=== PATIENT | male | born 1955 | race Caucasian/White ===

== ENCOUNTER 2017-12-13 07:58 | Observation (INO) | payer OTHER ==
[~2017-12-13] VITALS: Ht 182.9 cm; Wt 81.6 kg
[2017-12-13] MEDS ORDERED: ONDANSETRON HCL INJ 2 MG/ML VIAL IV STA (08:36)
[2017-12-13 08:41] LABS: BASOPHILS % 0.5 % (0.0-1.0); EOSINOPHILS # (AUTO) 0.2 (0.0-0.4); EOSINOPHILS % 2.1 % (0.0-6.0); HEMATOCRIT 46.4 % (38.2-49.6); HEMOGLOBIN 15.6 g/dL (14.0-18.0); LYMPHOCYTES # (AUTO) 1.9 (1.0-3.2); LYMPHOCYTES % 23.6 % (18.0-39.1); MEAN CORPUSCULAR HEMOGLOBIN 29.1 pg (28-32); MEAN CORPUSCULAR HGB CONC 33.6 g/dL (31-35); MEAN CORPUSCULAR VOLUME 86.4 fL (81-99); MONOCYTES # (AUTO) 0.7 (0.2-0.8); MONOCYTES % 8.9 % (4.4-11.3); NEUTROPHILS # (AUTO) 5.2 (2.1-6.9); NEUTROPHILS % 64.7 % (38.7-80.0); PLATELET COUNT 152 x10e3/uL (140-360); RED BLOOD COUNT 5.37 x10e6/uL (4.3-5.7)
[2017-12-13] MEDS ORDERED: SODIUM CHLORIDE 0.9% 250ML 250 ML IV ONE (08:45)
[2017-12-13] MEDS ORDERED: ACETAMIN/BUTALBITAL/CAFFEINE TAB PO ONE (08:45)
[2017-12-13] MEDS ORDERED: MECLIZINE HCL 12.5 MG TAB PO ONE ×2 (08:45→12:00)
[2017-12-13 08:51] LABS: INR 1.09; PROTHROMBIN TIME 13.3 seconds (11.9-14.5)
[2017-12-13 08:52] LABS: PARTIAL THROMBOPLASTIN TIME 25.2 seconds (23.8-35.5)
[2017-12-13] MEDS ORDERED: MECLIZINE HCL 12.5 MG TAB PO SCH (09:00)
[2017-12-13] MEDS ORDERED: ONDANSETRON HCL INJ 2 MG/ML VIAL IV PRN (09:00)
[2017-12-13] MEDS ORDERED: DEXTROSE 50% SYRINGE 50 ML IV PRN (09:00)
[2017-12-13] MEDS ORDERED: FAMOTIDINE 20 MG/2 ML VIAL IV SCH ×2 (09:00)
[2017-12-13] MEDS ORDERED: ASPIRIN 81 MG ENTERIC COATED PO SCH ×2 (09:00)
[2017-12-13] MEDS ORDERED: LEVALBUTEROL HCL SOLN NEBU 1.25 MG/3 ML NEB INH PRN (09:00)
[2017-12-13] MEDS ORDERED: ASPIRIN 81 MG CHEW TAB PO ONE (09:00)
[2017-12-13 09:01] LABS: ALANINE AMINOTRANSFERASE 15 IU/L (0-55); ALBUMIN 4.1 g/dL (3.5-5.0); ALBUMIN/GLOBULIN RATIO 1.1 (0.8-2.0); ALKALINE PHOSPHATASE 68 IU/L (40-150); ANION GAP 12.3 mmol/L (8-16); BLOOD UREA NITROGEN 23 mg/dL (7-26); BUN/CREATININE RATIO 22 (6-25); CARBON DIOXIDE 26 mmol/L (22-29); CHLORIDE 105 mmol/L (98-107); CREATINE KINASE 66 IU/L (30-200); CREATININE, SERUM 1.03 mg/dL (0.72-1.25); EST GLOMERULAR FILTRATION RATE > 60 ML/MIN (60-); GLUCOSE 246 mg/dL (74-118); POTASSIUM 4.3 mmol/L (3.5-5.1); SODIUM 139 mmol/L (136-145)
[2017-12-13 09:12] LABS: MAGNESIUM 1.8 MG/DL (1.3-2.1)
[2017-12-13] MEDS ORDERED: HYDRALAZINE HCL25 MG PO (09:13)
[2017-12-13] MEDS ORDERED: SERTRALINE HCL50 MG PO (09:13)
[2017-12-13] MEDS ORDERED: LOTRISONE CREAM15 GM TP (09:13)
[2017-12-13] MEDS ORDERED: METHOCARBAMOL750 MG PO (09:13)
[2017-12-13] MEDS ORDERED: FLUTICASONE PRO15 GM (09:13)
[2017-12-13] MEDS ORDERED: KLOR-CON 1010 MEQ PO (09:13)
[2017-12-13] MEDS ORDERED: LISINOPRIL2.5 MG PO (09:13)
[2017-12-13] MEDS ORDERED: HUMULIN-R100 UNITS/ (09:13)
[2017-12-13] MEDS ORDERED: PEPCID20 MG PO (09:13)
[2017-12-13] MEDS ORDERED: GABAPENTIN100 MG PO (09:13)
[2017-12-13] MEDS ORDERED: LOVASTATIN40 MG PO (09:13)
[2017-12-13] MEDS ORDERED: PROAIR HFA INH8.5 GM PO (09:13)
[2017-12-13] MEDS ORDERED: ASPIR 8181 MG PO (09:13)
[2017-12-13] MEDS ORDERED: TYLENOL WITH C1 EACH PO (09:13)
[2017-12-13] MEDS ORDERED: SYMBICORT 16010.2 GM PO (09:13)
[2017-12-13] MEDS ORDERED: NOVOLIN N100 UNIT/1 SQ (09:13)
[2017-12-13] MEDS ORDERED: COREG3.125 MG PO (09:13)
[2017-12-13] MEDS ORDERED: LASIX40 MG PO (09:13)
--- NOTE | 2017-12-13 09:20 | Diagnostic Imaging Report ---
PROCEDURE:CHEST SINGLE (PORTABLE) TECHNIQUE:Portable AP chest INDICATION:Dizziness for 5 days COMPARISON:None. FINDINGS: Lungs are clear and inflated. No pleural effusions. Normal heart size, mediastinal contour, and pulmonary vasculature. Pacemaker/AICD over left hemithorax; leads intact. Intact skeleton. CONCLUSION: No acute abnormality. Dictated by: Margarito Patterson M.D. on 12/13/2017 at 9:19 Electronically approved by: Margarito Patterson M.D. on 12/13/2017 at 9:19
[2017-12-13] MEDS ORDERED: CLOPIDOGREL BISULFATE 75 MG TAB PO ONE (09:30)
[2017-12-13 09:31] LABS: THYROID STIMULATING HORMONE 2.203 uIU/mL (0.350-4.940)
--- NOTE | 2017-12-13 09:31 | Diagnostic Imaging Report ---
Exam: Head CT without contrast History: Dizziness Comparison studies: None Technique: Axial images were obtained from the skull base to the vertex. Coronal and sagittal images reconstructed from the axial data. Intravenous contrast: None Findings: Scalp: No abnormalities. Bones: No fractures, blastic or lytic lesions. Brain sulci: Appropriate for age. Ventricles: Mild compensatory dilatation.. No hydrocephalus. Extra-axial spaces: No masses, no fluid collection. Parenchyma: Age-indeterminate nonhemorrhagic insults in the left cerebellum predominantly within the left PICA vascular territory appears superimposed on a more chronic insult in the left inferior cerebellum. No acute hemorrhage. A few hypodensities in the supratentorial white matter are nonspecific but most compatible with chronic small vessel ischemic changes. Sellar/suprasellar region: No abnormalities. Craniocervical junction: Patent foramen magnum. No Chiari one malformation. Incidental findings: Atherosclerotic calcifications in the carotid siphons.. IMPRESSION: 1. Age-indeterminate nonhemorrhagic insults in the left cerebellum without mass effect superimposed on chronic insult(s) predominantly in the left PICA territory. 2. Mild generalized volume loss. 3. Mild chronic microvascular ischemic changes. Findings were discussed with Dr. Truong at 9:25 AM on 12/13/2017. Cervical and intracranial CTA could further evaluate the vasculature as MRI may be contraindicated in this patient with pacemaker. Signed by: Dr. Walter Lopez M.D. on 12/13/2017 9:27 AM
--- OUTSIDE RECORDS SUMMARY | 2017-12-13 09:38 | XMS REPORT ---
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 Allergies, Adverse Reactions, Alerts This patient has no known allergies or adverse reactions. Medications This patient has no known medications. Results Test Description Test Time Test Comments Text Results Atomic Results Result Comments CHEST SINGLE (PORTABLE) [id number] [place], [place] [address] Patient Name: BHARGAV HODGE MR #: [id number] : 1955 Age/Sex: 62/M Req #: [id number] Adm Physician: Ordered by: KELLY CROFT MD, MD Report #: [id number] Location: ER Room/Bed: Procedure: [id number] DX/CHEST SINGLE (PORTABLE) Exam Date: 12/13/17 Exam Time: 0910 REPORT STATUS: Signed PROCEDURE: CHEST SINGLE (PORTABLE) TECHNIQUE: Portable AP chest INDICATION: Dizziness for 5 days COMPARISON: None. FINDINGS: Lungs are clear and inflated. No pleural effusions. Normal heart size, mediastinal contour, and pulmonary vasculature. Pacemaker/AICD over left hemithorax; leads intact. Intact skeleton. CONCLUSION: No acute abnormality. Dictated by: Chaitanya Patterson M.D. on 12/13/2017 at 9:19 Electronically approved by: Chaitanya Patterson M.D. on 12/13/2017 at 9:19 Dictated By: CHAITANYA PATTERSON MD 8 Transcribed By: POOL on 12/13/17918 COPY TO: KELLY CROFT CT BRAIN WO [place] [address] Patient Name: BHARGAV HODGE MR #: [id number] : 1955 Age/Sex: 62/M Req #: [id number] Adm Physician: Ordered by: KELLY CROFT MD, MD Report #: [id number] Location: ER Room/Bed: Procedure: [id number] CT/CT BRAIN WO Exam Date: Exam Time: REPORT STATUS: Signed Exam: Head CT without contrast History: Dizziness Comparison studies: None Technique: Axial images were obtained from the skull base to the vertex. Coronal and sagittal images reconstructed from the axial data. Intravenous contrast: None Findings: Scalp: No abnormalities. Bones: No fractures, blastic or lytic lesions. Brain sulci : Appropriate for age. Ventricles: Mild compensatory dilatation.. No hydrocephalus. Extra-axial spaces: No masses, no fluid collection. Parenchyma: Age-indeterminate nonhemorrhagic insults in the left cerebellum predominantly within the left PICA vascular territory appears superimposed on a more chronic insult in the left inferior cerebellum. No acute hemorrhage. A few hypodensities in the supratentorial white matter are nonspecific but most compatible with chronic small vessel ischemic changes. Sellar/ suprasellar region: No abnormalities. Craniocervical junction: Patent foramen magnum. No Chiari one malformation. Incidental findings: Atherosclerotic calcifications in the carotid siphons.. IMPRESSION: 1. Age-indeterminate nonhemorrhagic insults in the left cerebellum without mass effect superimposed on chronic insult(s) predominantly in the left PICA territory. 2. Mild generalized volume loss. 3. Mild chronic microvascular ischemic changes. Findings were discussed with Dr. Croft at 9:25 AM on 12/13/2017. Cervical and intracranial CTA could further evaluate the vasculature as MRI may be contraindicated in this patient with pacemaker. Signed by: Dr. Boo Lopez M.D. on 12/13/2017 9:27 AM Dictated By: BOO LOPEZ MD 6 Transcribed By: CODEY on 12/13/17926 COPY TO: KELLY CROFT
[2017-12-13 10:30] VITALS: BP 149/79
[2017-12-13] MEDS: NICOTINE 21 MG/EA PATCH TOP SCH (10:55)
--- NOTE | 2017-12-13 12:09 | Diagnostic Imaging Report ---
Exam: Neck and brain CTA History:Possible acute CVA Comparison studies:Head CT of 12/13/2017 performed on the same date. Technique: Axial images were obtained from the thoracic inlet. Coronal and sagittal images reconstructed from the axial data. Additional multiplanar 3-D MIP reformatted images were reviewed on a separate workstation the radiologist. Intravenous contrast: 100 cc of Omnipaque 300. If present, stenosis is calculated utilizing the NASCET method which calculates the degree of stenosis with reference to the normal lumen of the carotid artery distal to the stenosis. Findings: Cervical CTA: Aortic arch and major vessels: Minimal hard plaque within the descending aorta. Patent, no stenosis in the right brachiocephalic trunk and right subclavian artery. Patent, no stenosis in the proximal right subclavian artery Streak artifact from overlying venous contamination in the left subclavian vein Limited evaluation the distal left subclavian artery. Common carotid arteries: Patent. No abnormalities. Carotid bulbs: Heart and soft plaque bilaterally result in approximately 10% stenosis on the right. No (0%) hemodynamic significant stenosis on the left. Internal carotid arteries: Patent, no stenosis beyond the bulb. Left vertebral arteries: Patent, no abnormalities. The left vertebral artery is dominant. Intracranial CTA: Internal carotid arteries: Patent bilaterally with calcified atherosclerosis in the bilateral cavernous cavernous segments with only minimal stenosis in the bilateral cavernous segments. Middle cerebral arteries: Patent bilateral M1 and proximal M2 segments. Anterior cerebral arteries: Patent bilateral A1 and A2 segments. Vertebral arteries: Patent bilaterally. The V4 segment of the nondominant right vertebral artery is hypoplastic beyond the origin of the right PICA. The origin of the left posterior inferior cerebellar artery (PICA) is patent, moreover the left PICA is not well-visualized beyond its proximal segment. The left PICA territory is partially supplied by a dominant, patent right PICA. Basilar artery: Patent, no abnormalities. Posterior cerebral arteries: Patent, no abnormalities. Vertebral arteries: Anatomical variants: Acom: Patent. . Pcoms: Hypoplastic bilaterally. Vertebral arteries: Right is dominant. Incidental findings: Partially imaged left AICD and/or pacemaker. At least mild canal stenosis at C5-C6 due to a disc bulge. IMPRESSION: Cervical CTA: 1. Mild atherosclerosis at the carotid bulbs with approximately 10% stenosis at the right carotid bulb and no (0%) stenosis at the left carotid bulb. 2. Patent, no abnormalities in the vertebral arteries. Intracranial CTA: 1. Mild calcified atherosclerosis in the carotid siphons. 2. Left PICA not well visualized beyond beyond its origin which which is otherwise patent. Left PICA territory is partially supplied by a patent dominant right PICA. 3. No additional intracranial CTA abnormalities. Please refer to head CT report of the same date for further description of intracranial findings. Signed by: Dr. Walter Lopez M.D. on 12/13/2017 12:05 PM
[2017-12-13 12:16] VITALS: BP 149/79
[2017-12-13] MEDS: INSULIN REGULAR, HUMAN 100 UNIT/1 ML 3ML VIAL SQ SCH ×3 (12:30→21:41)
[2017-12-13] MEDS ORDERED: IPRATROPIUM BROMIDE 0.02% 2.5 ML NEB NEB SCH (13:00)
[2017-12-13] MEDS ORDERED: IOPAMIDOL 370 MG/ML 200 ML INFUS..BTL INJ ONE (13:50)
[2017-12-13] MEDS ORDERED: SODIUM CHLORIDE 0.9% 50ML 50 ML ONE (13:50)
[2017-12-13] MEDS: MECLIZINE HCL 12.5 MG TAB PO SCH ×2 (14:55→20:41)
[2017-12-13 15:56] VITALS: BP 127/69
[2017-12-13] MEDS: ACETAMIN/BUTALBITAL/CAFFEINE TAB PO PRN (16:39)
[2017-12-13 17:28] LABS: CREATINE KINASE 63 IU/L (30-200)
[2017-12-13] MEDS: CARVEDILOL 3.125 MG TAB PO SCH (18:01)
[2017-12-13] MEDS: GABAPENTIN 100 MG CAP PO SCH (20:41)
[2017-12-13] MEDS: HYDRALAZINE HCL 25 MG TAB PO SCH (20:41)
[2017-12-13 20:52] VITALS: BP 128/76
[2017-12-13] MEDS ORDERED: SIMVASTATIN 20 MG TAB PO SCH (21:00)
[2017-12-14] MEDS: ACETAMIN/BUTALBITAL/CAFFEINE TAB PO PRN (00:05)
[2017-12-14] MEDS: MECLIZINE HCL 12.5 MG TAB PO SCH ×4 (03:31→20:30)
[2017-12-14 04:32] VITALS: BP 131/73
[2017-12-14 06:42] LABS: BASOPHILS % 0.5 % (0.0-1.0); EOSINOPHILS # (AUTO) 0.1 (0.0-0.4); EOSINOPHILS % 1.7 % (0.0-6.0); HEMATOCRIT 44.3 % (38.2-49.6); HEMOGLOBIN 14.7 g/dL (14.0-18.0); LYMPHOCYTES # (AUTO) 2.3 (1.0-3.2); LYMPHOCYTES % 27.9 % (18.0-39.1); MEAN CORPUSCULAR HEMOGLOBIN 28.9 pg (28-32); MEAN CORPUSCULAR HGB CONC 33.2 g/dL (31-35); MEAN CORPUSCULAR VOLUME 87.2 fL (81-99); MONOCYTES # (AUTO) 0.6 (0.2-0.8); MONOCYTES % 6.8 % (4.4-11.3); NEUTROPHILS # (AUTO) 5.3 (2.1-6.9); NEUTROPHILS % 62.9 % (38.7-80.0); PLATELET COUNT 152 x10e3/uL (140-360); RED BLOOD COUNT 5.08 x10e6/uL (4.3-5.7); RED CELL DISTRIBUTION WIDTH 12.8 % (11.7-14.4)
[2017-12-14] MEDS: BUDESONIDE/FORMOTEROL 160/4.5MCG INHALER INH SCH ×2 (07:00→10:33)
[2017-12-14 07:01] LABS: ALANINE AMINOTRANSFERASE 14 IU/L (0-55); ALBUMIN 3.6 g/dL (3.5-5.0); ALBUMIN/GLOBULIN RATIO 1.1 (0.8-2.0); ALKALINE PHOSPHATASE 63 IU/L (40-150); ANION GAP 9.9 mmol/L (8-16); BLOOD UREA NITROGEN 18 mg/dL (7-26); BUN/CREATININE RATIO 17 (6-25); CALCIUM 9.2 mg/dL (8.4-10.2); CARBON DIOXIDE 28 mmol/L (22-29); CHLORIDE 103 mmol/L (98-107); CHOL/HDL RATIO 4.7 (3.9-4.7); CHOLESTEROL 177 MD/DL (0-199); CREATININE, SERUM 1.03 mg/dL (0.72-1.25); EST GLOMERULAR FILTRATION RATE > 60 ML/MIN (60-); GLUCOSE 260 mg/dL (74-118); HDL CHOLESTEROL 38 MG/DL (40-60); LDL CHOLESTEROL 104 MG/DL (60-130); MAGNESIUM 1.7 MG/DL (1.3-2.1); POTASSIUM 3.9 mmol/L (3.5-5.1); SODIUM 137 mmol/L (136-145); TRIGLYCERIDES 177 MG/DL (0-149)
[2017-12-14] MEDS: INSULIN REGULAR, HUMAN 100 UNIT/1 ML 3ML VIAL SQ SCH ×4 (07:30→20:30)
[2017-12-14 07:33] LABS: CREATINE KINASE 56 IU/L (30-200)
[2017-12-14 08:30] VITALS: BP 125/56
[2017-12-14] MEDS: NICOTINE 21 MG/EA PATCH TOP SCH (09:00)
[2017-12-14] MEDS ORDERED: ASPIRIN 81 MG ENTERIC COATED PO SCH (09:00)
[2017-12-14] MEDS: CLOPIDOGREL BISULFATE 75 MG TAB PO SCH (09:00)
[2017-12-14] MEDS ORDERED: ASPIRIN 81 MG CHEW TAB PO SCH (09:00)
[2017-12-14] MEDS: SERTRALINE HCL 50 MG TAB PO SCH (09:00)
[2017-12-14] MEDS: LISINOPRIL 2.5 MG TAB PO SCH (09:00)
[2017-12-14] MEDS: FUROSEMIDE 40 MG TAB PO SCH (09:00)
[2017-12-14] MEDS: GABAPENTIN 100 MG CAP PO SCH ×3 (09:00→20:30)
[2017-12-14] MEDS: CARVEDILOL 3.125 MG TAB PO SCH ×2 (09:00→17:00)
[2017-12-14 11:54] VITALS: BP 132/76
[2017-12-14] MEDS ORDERED: METHYLPREDNISOLONE SOD SUCC 125 MG/2ML VIAL IV NR (12:30)
[2017-12-14] MEDS ORDERED: PROMETHAZINE 25MG/ NS 50ML (IV) IV NR (13:00)
[2017-12-14] MEDS ORDERED: VALPROATE SOD INJ 500 MG in SODIUM CHLORIDE 0.9% 100 ML 100 ML IV SCH (13:00)
--- NOTE | 2017-12-14 14:22 | Consultation ---
DATE OF CONSULTATION: December 14, 2017 NEUROLOGY CONSULT HISTORY OF PRESENT ILLNESS: Mr. Adkins is a 62-year-old right-hand dominant man with multiple vascular risk factors, who presented to the emergency center at [facility] on December 13, 2017, with over 1 week of symptoms as follows: Approximately 8 days prior to admission, the patient experienced the sudden onset of dizziness, which he describes as an imbalanced sensation, as well as a feeling of unsteadiness while walking. As stated previously, the symptoms began suddenly, lasted only a few seconds and spontaneously resolved. The next day, at approximately 5 a.m., the patient once again experienced the sudden onset of dizziness as described above. However, the dizziness lasted for the remainder of the day. Associated with the dizziness was nausea, vomiting, and diaphoresis. Upon awakening the following morning, the patient was at his neurological baseline. However, at some point during the day, he once again experienced a sudden onset of dizziness, nausea, vomiting, and diaphoresis. These symptoms lasted for approximately 1 hour, and then spontaneously resolved. On the following day, the patient once again experienced the sudden onset of dizziness, nausea, vomiting, and diaphoresis. These symptoms lasted for approximately 1 hour, and then spontaneously resolved. Mr. Adkins then went several days without experiencing any neurological symptoms. However, at approximately 9 p.m. on the day prior to admission, the patient once again experienced the abrupt onset of dizziness, nausea, vomiting, and diaphoresis. In addition to these symptoms, the patient reported a headache, which is described as follows: The pain is located behind the left eye and does not radiate. The pain is described as pounding and is rated an 8/10. Associated with the headache are photophobia and phonophobia. Mr. Adkins reports the headache has been present intermittently over the past 2 days. Approximately 1 week ago, he recalls experiencing a severe headache "a couple of times" in association with the dizziness, nausea, vomiting, and diaphoresis. In addition to the above symptoms, the patient also reports the abrupt onset of numbness affecting both hands on the morning of admission. While in the emergency center at [facility], the patient underwent a CT of the brain without contrast, which did reveal a subacute ischemic stroke in the left cerebellum. Mr. Adkins was admitted to the hospital for further evaluation and treatment. REVIEW OF SYSTEMS: Diaphoresis, nausea, vomiting, joint pain, headache, numbness of the hands, and impaired balance and gait. Otherwise, a 12-point review of systems is negative. PAST MEDICAL HISTORY: Hypertension, hyperlipidemia, diabetes mellitus, coronary artery disease status post myocardial infarction, congestive heart failure, COPD, osteoarthritis, alcoholic cirrhosis, hepatitis C, depression, prior stroke with unknown residual deficits, and peripheral neuropathy. PAST SURGICAL HISTORY: Two-vessel CABG, pacemaker placement. 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 FAMILY HISTORY: The patient's paternal and maternal grandparents are . Mr. Adkins reports his maternal grandmother from an unspecified gastrointestinal cancer. Medical history of the other grandparents is unknown. The patient's father is from suicide. He had a history of alcohol abuse. The patient's mother is . She had diabetes mellitus as well as dementia. The patient has 1 sister who is healthy. He has multiple half siblings spread throughout the world. Their medical histories are unknown. The patient has 1 child, a son, who is from suicide. Mr. Adkins's son had a history of depression, as well as substance abuse. SOCIAL HISTORY: The patient graduated from high school, and previously worked as a zhou. He has been on disability for approximately 1 year. Mr. Adikns is from his . The patient does use tobacco. He smokes 4-5 cigarettes per day and chews tobacco throughout the day. He has been smoking for approximately 55 years. The patient has a prior history of alcohol abuse. He has been sober for approximately 14 years. The patient has an extensive history of recreational drug use, including marijuana, cocaine, LSD, amphetamines, and heroin. Last use was approximately 15 years ago. HOME MEDICATIONS 1. Aspirin 81 mg by mouth daily. 2. Acetaminophen with codeine 300 mg by mouth twice daily. 3. ProAir inhaler 8.5 g 2 puffs inhaled as needed for shortness of breath. 4. Symbicort inhaler 160 per 4.5 mg 2 puffs inhaled twice daily. 5. Coreg 3.125 mg by mouth daily. 6. Pepcid 20 mg by mouth twice daily. 7. Fluticasone propionate 1 spray to each nostril daily. 8. Lasix 40 mg by mouth daily. 9. Gabapentin 100 mg by mouth 3 times daily. 10. Hydralazine 25 mg by mouth at bedtime. 11. Humulin sliding scale injected before meals. 12. Lisinopril 2.5 mg by mouth daily. 13. Lovastatin 40 mg by mouth daily. 14. Methocarbamol 750 mg by mouth daily. 15. Novolin 30 units subcutaneously twice daily. 16. Potassium chloride 10 mEq by mouth daily. 17. Sertraline 50 mg by mouth daily. ALLERGIES: THE PATIENT REPORTS ALLERGIES TO AMOXICILLIN AND GLYBURIDE. HE DOES NOT ENDORSE FOOD ALLERGIES, ALLERGY TO LATEX, OR ALLERGY TO CONTRAST MATERIALS. PHYSICAL EXAMINATION VITAL SIGNS: Height 72 inches, weight 180 pounds, BMI 24.4 kg per meter squared, blood pressure 132/76 mmHg, pulse 76 beats per minute, respiratory rate 16 beats per minute, oxygen saturation 98% on room air. GENERAL: The patient is awake, alert, and does not appear in distress. HEENT: Normocephalic and atraumatic. Pupils equal, round and reactive to light. Moist mucous membranes. NECK: Supple. No appreciable thyromegaly. No appreciable carotid bruits. CARDIOVASCULAR: S1 and S2. Regular rate and rhythm. No murmurs, rubs or gallops. RESPIRATORY: Clear to auscultation bilaterally. No wheezes, rhonchi or rales. EXTREMITIES: The skin is warm and dry. No clubbing, cyanosis or edema. The posterior tibial and dorsalis pedis pulses are 2+ and symmetric. SKIN: No rashes or lesions. NEUROLOGIC: Memory/attention: The patient is awake and alert. Oriented to person, place, time, and situation. CRANIAL NERVES: Cranial nerve I not tested. Cranial II, III, IV, and : Pupils equal, round and react briskly to light (from 3 mm to 2 mm). Extraocular movements intact. No nystagmus. Cranial nerve V: Sensation to light touch and pinprick is intact in the bilateral V1-V3 distributions. Strength of the temporalis and masseter muscles are within normal limits. Cranial nerve VII: The face is symmetric as are all facial movements. Strength is within normal limits. Cranial nerve VIII: Hearing is intact to finger rub bilaterally. Cranial nerve IX and X: The soft palate elevates equally and symmetrically. Cranial nerve XI: Normal strength of the bilateral sternocleidomastoid and trapezius muscles. Cranial nerves XII: The tongue protrudes midline and moves symmetrically from side to side. STRENGTH: Bulk is normal and strength is 5/5 in the right deltoid, biceps, triceps, wrist flexors and extensors, finger flexors and extensors, intrinsic hand muscles, hip flexors, knee flexors and extensors, ankle dorsiflexion and plantar flexion, and intrinsic foot muscles. Strength is 4 to 4+/5 in the left deltoid, biceps, triceps, wrist flexors and extensors, finger flexors and extensors, intrinsic hand muscles, hip flexors, knee flexors and extensors, ankle dorsiflexion and plantar flexion, and intrinsic foot muscles. Tone is normal. DTR: Deep tendon reflexes are 1+ and symmetric at the triceps, biceps, brachioradialis, patellas, and Achilles. Plantar responses are flexor bilaterally. SENSATION: Intact to light touch and pinprick in both arms and both legs. CEREBELLAR: [place]-hg-fzaf-to-finger and heel-gómez movements are intact without dysmetria or other impairment on the right. [place]-rf-zbae-to-finger and heel-gómez movements are mildly impaired on the left. GAIT: Deferred. SPEECH: Spontaneous speech is normal without appreciable dysarthria or aphasia. Repetition is intact. INVOLUNTARY MOVEMENTS: None. PRONATOR DRIFT: None. LABORATORY DATA: Sodium 137, potassium 3.9, chloride 103, carbon dioxide 28, anion gap 9.9, BUN 18, creatinine 1.03, estimated GFR greater than 60, BUN to creatinine ratio 17, glucose 274, 260, 224, 226. Calcium 9.2. Magnesium 1.7. Total bilirubin 0.4, AST 16, ALT 14, alkaline phosphatase 63, creatinine kinase 56, CK-MB 1.6, troponin I less than 0.001. Total protein 7, albumin 3.6, globulin 3.4, albumin to globulin ratio 1.1. Total cholesterol 177, triglycerides 177, LDL cholesterol 104, HDL cholesterol 38. The CBC with differential and platelets reveals a white blood cell count of 8.4 with a normal differential. The hemoglobin and hematocrit are 14.7 and 44.3 respectively. The platelet count is 152,000. PT 13.3, INR 1.09 and PTT 25.2. DIAGNOSTIC STUDIES: EKG on December 13, 2017, electronic atrial pacemaker with a heart rate of [address] of the brain without contrast on December 13, 2017, on my review, there are subacute ischemic strokes in the left cerebellum without hemorrhage or superimposed mass effect. There are chronic ischemic strokes, particularly in the left PICA territory. There is mild generalized volume loss, appropriate for age. There are mild to moderate changes consistent with chronic microvascular ischemic disease. CTA of head and neck on December 13, 2017, there is mild atherosclerosis of the carotid bulbs with approximately 10% stenosis at the right carotid bulb and no stenosis at the left carotid bulb. The vertebral arteries are patent. There is mild calcified atherosclerosis in the carotid siphons. The left PICA is not well visualized beyond its origin, which is patent. The left PICA territory is partially supplied by a patent and dominant right PICA. Echocardiogram on December 13, 2017, there is diminished left ventricular function with an ejection fraction of 35% to 40%. Right ventricular enlargement and left atrial enlargement are seen. The aortic valve is calcified. There is trace tricuspid regurgitation. Bilateral carotid ultrasound on December 13, 2017, there is evidence of carotid disease without significant stenosis at the bilateral carotid bulbs and bifurcations. Flow is antegrade in both vertebral arteries. ASSESSMENT AND PLAN: Mr. Adkins is a 62-year-old right-hand dominant man with multiple vascular risk factors as described above with subacute left cerebellar strokes and status migrainosus. His neurological examination is significant for mild left hemiparesis and dysmetria with eptpnw-hqdt-ymfqfv and heel-gómez maneuvers on the left. His laboratory data and diagnostic studies have been reviewed and are documented above. A stroke evaluation is complete. Recommendations are as follows: 1. Discontinue aspirin 81 mg by mouth daily. Continue with Plavix 75 mg by mouth daily for stroke prophylaxis. 2. The patient's blood pressure may be normalized. His goal blood pressure prior to discharge is less than 140/90 mmHg. The patient's blood pressures are at goal. Continue with current medications. 3. Discontinue treatment with lovastatin. Prescribe simvastatin 40 mg by mouth daily for treatment of hyperlipidemia. The patient's cholesterol goals are a total cholesterol of less than 200 with an LDL of less than 70. 4. Tight glycemic control is recommended. The patient's goal hemoglobin A1c is less than 7.0. A hemoglobin A1c will be ordered. 5. The patient is tolerating PO. GI prophylaxis is not indicated. 6. DVT prophylaxis with Lovenox 30 mg subcutaneously daily. 7. Follow up on the physical therapy evaluation for disposition. 8. Smoking cessation counseling was provided to the patient. For treatment of the patient's status migrainosus, recommendations are as follows: 1. Phenergan 25 mg intravenously once. 2. Methylprednisolone 125 mg intravenously once. 3. Valproic acid 500 mg intravenously once. 4. Treatment with this combination of medications should lead to resolution of the patient's migraine. However, if the headache persists after treatment with the above medications, these same medications may be administered in another 6 hours. Thank you for this consultation. I will continue to follow this patient while he remains in the hospital. TIME SPENT: 70 minutes. Job#: [id number] CHARISSE MTDArtur
[2017-12-14] MEDS ORDERED: SODIUM CHLORIDE 0.9% 250ML 250 ML ONE (15:54)
[2017-12-14 16:00] VITALS: BP 122/66
[2017-12-14] MEDS ORDERED: VALPROATE SOD INJ 500 MG in SODIUM CHLORIDE 0.9% 100 ML 100 ML IV ONE ×2 (16:00→22:30)
[2017-12-14] MEDS ORDERED: METHYLPREDNISOLONE SOD SUCC 125 MG/2ML VIAL IV ONE ×2 (16:30→22:30)
[2017-12-14] MEDS: NPH, HUMAN INSULIN ISOPHANE 100 UNIT/1 ML 3ML VIAL SQ SCH (17:00)
[2017-12-14 20:00] VITALS: BP 124/70
[2017-12-14 20:05] VITALS: BP 124/70
[2017-12-14] MEDS: HYDRALAZINE HCL 25 MG TAB PO SCH (20:30)
[2017-12-14] MEDS: SIMVASTATIN 40 MG TAB PO SCH (20:30)
[2017-12-14] MEDS ORDERED: SIMVASTATIN 20 MG TAB PO SCH (21:00)
[2017-12-15] VITALS (9 sets, daily range): BP systolic 111–125; BP diastolic 60–75
[2017-12-15] MEDS: MECLIZINE HCL 12.5 MG TAB PO SCH ×4 (04:46→20:30)
[2017-12-15] MEDS: INSULIN REGULAR, HUMAN 100 UNIT/1 ML 3ML VIAL SQ SCH ×4 (07:30→20:30)
[2017-12-15] MEDS: FUROSEMIDE 40 MG TAB PO SCH (09:00)
[2017-12-15] MEDS: SERTRALINE HCL 50 MG TAB PO SCH (09:00)
[2017-12-15] MEDS: CARVEDILOL 3.125 MG TAB PO SCH ×2 (09:00→16:53)
[2017-12-15] MEDS: NPH, HUMAN INSULIN ISOPHANE 100 UNIT/1 ML 3ML VIAL SQ SCH ×2 (09:00→16:53)
[2017-12-15] MEDS: GABAPENTIN 100 MG CAP PO SCH ×3 (09:00→20:30)
[2017-12-15] MEDS: LISINOPRIL 2.5 MG TAB PO SCH (09:00)
[2017-12-15] MEDS: CLOPIDOGREL BISULFATE 75 MG TAB PO SCH (09:00)
[2017-12-15] MEDS: ENOXAPARIN 30 MG/0.3 ML SYR SC SCH (09:00)
[2017-12-15] MEDS: NICOTINE 21 MG/EA PATCH TOP SCH (09:00)
[2017-12-15] MEDS: ACETAMIN/BUTALBITAL/CAFFEINE TAB PO PRN (09:35)
[2017-12-15] MEDS ORDERED: VALPROATE SOD INJ 500 MG in SODIUM CHLORIDE 0.9% 100 ML 100 ML IV ONE (12:00)
[2017-12-15] MEDS ORDERED: PROMETHAZINE 12.5MG/ NACL 0.9% 12.5 MG/50 ML BAG IV SCH (12:00)
[2017-12-15] MEDS ORDERED: METHYLPREDNISOLONE SOD SUCC 125 MG/2ML VIAL IV SCH (12:00)
[2017-12-15] MEDS ORDERED: SODIUM CHLORIDE 0.9% 100 ML 100 ML ONE (13:14)
[2017-12-15] MEDS ORDERED: VALPROATE SOD INJ 500 MG in SODIUM CHLORIDE 0.9% 100 ML 100 ML IV SCH (14:00)
[2017-12-15] MEDS: HYDRALAZINE HCL 25 MG TAB PO SCH (20:30)
[2017-12-15] MEDS: SIMVASTATIN 40 MG TAB PO SCH (20:30)
[2017-12-15] MEDS: BUDESONIDE/FORMOTEROL 160/4.5MCG INHALER INH SCH (20:55)
[2017-12-16] MEDS: MECLIZINE HCL 12.5 MG TAB PO SCH ×4 (04:20→20:28)
[2017-12-16 04:30] VITALS: BP 130/69
[2017-12-16] MEDS: BUDESONIDE/FORMOTEROL 160/4.5MCG INHALER INH SCH ×2 (07:00→20:10)
[2017-12-16] MEDS: INSULIN REGULAR, HUMAN 100 UNIT/1 ML 3ML VIAL SQ SCH ×4 (07:30→21:00)
[2017-12-16 08:00] VITALS: BP 144/79
[2017-12-16] MEDS: NPH, HUMAN INSULIN ISOPHANE 100 UNIT/1 ML 3ML VIAL SQ SCH ×2 (09:00→17:14)
[2017-12-16] MEDS: FUROSEMIDE 40 MG TAB PO SCH (09:36)
[2017-12-16] MEDS: LISINOPRIL 2.5 MG TAB PO SCH (09:36)
[2017-12-16] MEDS: NICOTINE 21 MG/EA PATCH TOP SCH (09:36)
[2017-12-16] MEDS: CLOPIDOGREL BISULFATE 75 MG TAB PO SCH (09:36)
[2017-12-16] MEDS: ENOXAPARIN 30 MG/0.3 ML SYR SC SCH (09:36)
[2017-12-16] MEDS: CARVEDILOL 3.125 MG TAB PO SCH ×2 (09:36→17:13)
[2017-12-16] MEDS: GABAPENTIN 100 MG CAP PO SCH ×3 (09:36→20:29)
[2017-12-16] MEDS: SERTRALINE HCL 50 MG TAB PO SCH (09:36)
[2017-12-16 12:00] VITALS: BP 130/62
[2017-12-16 16:00] VITALS: BP 113/72
[2017-12-16 20:00] VITALS: BP 126/70
[2017-12-16] MEDS: HYDRALAZINE HCL 25 MG TAB PO SCH (20:28)
[2017-12-16] MEDS: SIMVASTATIN 40 MG TAB PO SCH (20:30)
[2017-12-17] VITALS: BP 123/73
[2017-12-17] MEDS: MECLIZINE HCL 12.5 MG TAB PO SCH ×2 (03:00→08:38)
[2017-12-17 04:00] VITALS: BP 114/69
[2017-12-17 06:21] VITALS: BP 123/73
[2017-12-17 07:59] VITALS: BP 133/81
[2017-12-17 08:00] VITALS: BP 133/81
[2017-12-17] MEDS: CARVEDILOL 3.125 MG TAB PO SCH (08:38)
[2017-12-17] MEDS: INSULIN REGULAR, HUMAN 100 UNIT/1 ML 3ML VIAL SQ SCH ×2 (08:38→12:33)
[2017-12-17] MEDS: NPH, HUMAN INSULIN ISOPHANE 100 UNIT/1 ML 3ML VIAL SQ SCH (08:39)
[2017-12-17] MEDS: ENOXAPARIN 30 MG/0.3 ML SYR SC SCH (08:39)
[2017-12-17] MEDS: NICOTINE 21 MG/EA PATCH TOP SCH (08:39)
[2017-12-17] MEDS: GABAPENTIN 100 MG CAP PO SCH (08:39)
[2017-12-17] MEDS: FUROSEMIDE 40 MG TAB PO SCH (08:39)
[2017-12-17] MEDS: CLOPIDOGREL BISULFATE 75 MG TAB PO SCH (08:39)
[2017-12-17] MEDS: SERTRALINE HCL 50 MG TAB PO SCH (08:39)
[2017-12-17] MEDS: LISINOPRIL 2.5 MG TAB PO SCH (08:39)
[2017-12-17 11:48] VITALS: BP 130/75
[2017-12-17] MEDS: BUDESONIDE/FORMOTEROL 160/4.5MCG INHALER INH SCH (11:55)
--- NOTE | 2017-12-17 13:20 | Discharge Summary ---
FINAL DIAGNOSIS: Status migrainosus, resolved. SECONDARY DIAGNOSES 1. Subacute cerebellar stroke. 2. Chronic obstructive pulmonary disease, stable. 3. Coronary artery disease with previous coronary artery bypass graft. 4. Chronic systolic stable and compensated congestive heart failure. 5. Uncontrolled diabetes. Glycosylated hemoglobin is 7.8%. PROCEDURES/STUDIES PERFORMED 1. Echocardiogram shows EF of 35% to 40%. 2. CT angiography of the head and neck. INTERN: Dr. Ilda Walter, neurology. HISTORY: Per H and P. HOSPITAL COURSE: Initially, the patient was admitted with severe tinnitus, dizziness and headache. The patient was seen by neurology. Status migrainosus was diagnosed. The patient underwent IV Solu-Medrol and IV valproic acid. After 2 doses, he is feeling better. The patient was also diagnosed with subacute cerebellar stroke, thus considered failing of his baby aspirin. Therefore, Plavix was started. I spoke to the patient at length. He still needs a baby aspirin for his coronary artery disease. At this time, I feel the benefits of dual antiplatelet therapy outweigh the risks. I have also asked him to talk to his primary care doctor as well. The patient's lovastatin was switched to Zocor given the fact that his LDL was 104. The patient was seen and examined today. CONDITION ON DISCHARGE: Stable. DISCHARGE MEDICATIONS: Please see medication reconciliation form. MAT NAVA M.D. Job#: [id number]
[2017-12-17] MEDS ORDERED: PLAVIX75 MG PO (13:46)
[2017-12-17] MEDS ORDERED: ZOCOR40 MG PO (13:46)
== END 2017-12-17 14:05 | disposition home or self-care (01) ==
LOC: ER 08:03 → EDBEDREQ 09:15 → ERHOLD 09:36 → MED/SURG 09:56
PROVIDERS: ADMIT Internal Medicine; ATTEND Internal Medicine
DX: I63.8 Other cerebral infarction (principal); I25.810 Atherosclerosis of coronary artery bypass graft(s) without angina pectoris; I11.0 Hypertensive heart disease with heart failure; I50.22 Chronic systolic (congestive) heart failure; J44.9 Chronic obstructive pulmonary disease, unspecified; E11.65 Type 2 diabetes mellitus with hyperglycemia; G43.901 Migraine, unspecified, not intractable, with status migrainosus; H93.19 Tinnitus, unspecified ear; E78.5 Hyperlipidemia, unspecified; G62.9 Polyneuropathy, unspecified; I07.1 Rheumatic tricuspid insufficiency; Z88.0 Allergy status to penicillin; F17.210 Nicotine dependence, cigarettes, uncomplicated; F17.220 Nicotine dependence, chewing tobacco, uncomplicated; Z79.4 Long term (current) use of insulin; Z79.82 Long term (current) use of aspirin; Z95.1 Presence of aortocoronary bypass graft; Z95.0 Presence of cardiac pacemaker; Z82.49 Family history of ischemic heart disease and other diseases of the circulatory system
CPT/HCPCS: 36415 ×5; 70450; 70496; 70498; 71045; 80053 ×2; 80061; 82550 ×2; 82553 ×2; 82948 ×5; 83036; 83690; 83735 ×2; 83880; 84443; 84484 ×2; 85025 ×2; 85610; 85730; 87086; 93005; 93306; 93880; 94640 ×2; 96372; 97116; 97139; 97161; 97530; 99285; G0378 ×5; J1650 ×3; J2405; J2550; J2930 ×2; J7050 ×2; Q9967

== ENCOUNTER 2018-02-08 05:01 | Inpatient (IN) | payer OTHER ==
[~2018-02-08] VITALS: Ht 182.9 cm; Wt 90.9 kg
[~2018-02-08 05:01] MED LIST: ASPIR 8181 MG PO; COREG3.125 MG PO; FLUTICASONE PRO15 GM; GABAPENTIN100 MG PO; HUMULIN-R100 UNITS/; HYDRALAZINE HCL25 MG PO; KLOR-CON 1010 MEQ PO; LASIX40 MG PO; LISINOPRIL2.5 MG PO; LOTRISONE CREAM15 GM TP; LOVASTATIN40 MG PO; METHOCARBAMOL750 MG PO; NOVOLIN N100 UNIT/1 SQ; PEPCID20 MG PO; PLAVIX75 MG PO; PROAIR HFA INH8.5 GM PO; SERTRALINE HCL50 MG PO; SYMBICORT 16010.2 GM PO; TYLENOL WITH C1 EACH PO; ZOCOR40 MG PO
--- OUTSIDE RECORDS SUMMARY | 2018-02-08 05:04 | XMS REPORT | Clinical Summary ---
Author Author ALVINO [employer] [facility] [employer] [facility] [facility] Address Unknown Phone Unavailable Care Team Providers Care Sales Service Supervisor Name Role Phone PCP Unavailable Allergies Active Allergy Reactions Severity Noted Date Comments Amoxicillin 08/30/2015 Glyburide 08/30/2015 Tramadol 08/30/2015 Current Medications Prescription Sig. Disp. Refills Start End Date Status Date albuterol HFA (VENTOLIN Inhale 2 puffs by mouth Active HFA) 90 mcg/actuation via inhaler every 4 inhaler (four) hours as needed for Wheezing. benzonatate (TESSALON) Take 100 mg by mouth 3 Active 100 MG capsule (three) times daily as needed for Cough. budesonide-formoterol Inhale 2 puffs by mouth Active (SYMBICORT) 160-4.5 via inhaler 2 (two) times mcg/actuation inhaler daily. carvedilol (COREG) 3.125 Take 3.125 mg by mouth 2 Active MG tablet (two) times daily with breakfast and dinner. cetirizine (ZYRTEC) 10 MG Take 10 mg by mouth Active tablet daily. omega-3 fatty Take 1,200 mg by mouth Active acids-vitamin E 1,000 mg daily. Cap furosemide (LASIX) 40 MG Take 40 mg by mouth Active tablet daily. lisinopril Take 2.5 mg by mouth Active (PRINIVIL,ZESTRIL) 2.5 MG daily. tablet mometasone (NASONEX) 50 2 sprays by Nasal route Active mcg/actuation nasal spray daily. multivitamin per tablet Take 1 tablet by mouth Active daily. potassium chloride SA Take 10 mEq by mouth Active (K-DUR,KLOR-CON) 10 MEQ daily. tablet salmeterol (SEREVENT) 50 Inhale 1 puff by mouth Active mcg/dose diskus inhaler via inhaler 2 (two) times daily. sertraline (ZOLOFT) 50 MG Take 50 mg by mouth Active tablet daily. zafirlukast (ACCOLATE) 20 Take 20 mg by mouth 2 Active MG tablet (two) times daily. acetaminophen (TYLENOL Take 2 tablets (1,000 mg 100 tablet 2 04/25/20 04/25/20 EXTRA STRENGTH) 500 MG total) by mouth every 6 16 17 tablet (six) hours as needed for Pain. Active Problems Problem Noted Date Sternal pain 04/25/2016 Dizziness 10/02/2015 Mediastinitis 10/02/2015 Sepsis ([facility]) 09/18/2015 Cough 09/17/2015 Other specified fever 09/17/2015 COPD (chronic obstructive pulmonary disease) ([facility]) 09/09/2015 Tobacco abuse 09/09/2015 Cirrhosis ([facility]) 09/09/2015 Hepatitis C 09/09/2015 Atelectasis 09/09/2015 Insomnia 09/09/2015 Diabetes ([facility]) 09/09/2015 Thrombocytopenia ([facility]) 09/09/2015 Lung mass 09/09/2015 Hypertension 09/09/2015 Coronary artery disease due to calcified coronary lesion 09/06/2015 CAD (coronary artery disease) 08/30/2015 Family History Medical History Relation Name Comments Alcohol abuse Father Depression Father Diabetes Mother Relation Name Status Comments Father Mother Social History Tobacco Use Types Packs/Day Years Used Date Current Every Day Smoker 0.25 53 Alcohol Use Drinks/Week oz/Week Comments No "sober for 12 years" Sex Assigned at Date Recorded Not on file Last Filed Vital Signs Not on file Plan of Treatment Not on file Results Not on fileafter 02/07/2017
--- OUTSIDE RECORDS SUMMARY | 2018-02-08 05:04 | XMS REPORT | Continuity of Care Document ---
Author Author [facility] Organization [facility] Address [address] [place] [address] Phone Unavailable Care Team Providers Care Renal Medicine Specialist Name Role Phone NONSTAFF PCP Unavailable Insurance Providers Guarantor NaveenBhargav villalta Address [address] [place] [address] Email [email or web address] Policy Number [id number] Subscriber's Name Bhargav Adkins Relationship 18 Self / Same As Patient Effective Date 17 Advance Directives Directive Response Recorded Date/Time Does the patient have an advance directive? No 12/13/17 10:30am If yes, is advance directive on file with [facility]? No 12/13/17 10:30am If not on file with [facility] will patient provide a copy? Yes 12/13/17 10:30am Do you have a Directive to Physician? No 12/13/17 9:23am Do you have a Medical Power of Silk Presser? No 12/13/17 9:23am Do you have an out of hospital Do Not Resuscitate Order? No 12/13/17 9:23am Do you have any special needs we should be aware of? No 12/13/17 9:23am Do you have a support person here with you today? No 12/13/17 9:23am Did patient receive Notice of Privacy Practices? Yes 12/13/17 9:23am Did patient receive patient rights and responsibilities? Yes 12/13/17 9:23am Problems Medical Problem Onset Date Status Diabetes Unknown Vertigo Unknown Weakness Unknown Medications Current Home Medications Medication Dose Units Route Directions Days Qty Instructions Start Date Acetaminophen With Codeine (Tylenol With Codeine #3 Tablet) 1 Each Tablet 300 Mg Oral Twice A Day Albuterol Sulfate (Proair Hfa Inhaler*) 8.5 Gm Inh 2 Ea Oral As Needed Aspirin (Aspir 81) 81 Mg Tablet.dr 1 Tab Oral Daily Budesonide/Formoterol Fumarate (Symbicort 160-4.5 Mcg Inhaler) 10.2 Gm Hfa.aer.ad 2 Inh Oral Twice A Day Carvedilol (Coreg) 3.125 Mg Tab 1 Tab Oral Daily Clopidogrel Bisulfate (Plavix) 75 Mg Tablet 75 Mg Oral Daily 30 Tab Clotrimazole/Betamethasone Dip (Lotrisone Cream) 15 Gm Cream..g. 2 Drop Topical Twice A Day Famotidine (Pepcid) 20 Mg Tablet 20 Mg Oral Twice A Day 60 Tab Fluticasone Propionate 15 Gm Cr 1 Sprays Nasal Daily Furosemide (Lasix) 40 Mg Tablet 40 Mg Oral Daily 30 Tab Gabapentin 100 Mg Capsule 1 Cap Oral Three Times A Day Hydralazine Hcl 25 Mg Tab 25 Mg Oral Bedtime Insulin Human Regular (Humulin-R 10ML Vial) 100 Units/Ml Inj Lisinopril 2.5 Mg Tablet 2.5 Mg Oral Daily 30 Tab Methocarbamol 750 Mg Tablet 750 Mg Oral Daily 30 Tab Nph, Human Insulin Isophane (Novolin N) 100 Unit/1 Ml Vial 30 Units Sub-Q Twice A Day Potassium Chloride (Klor-Con 10) 10 Meq Tablet.er 1 Tab Oral Daily Sertraline Hcl 50 Mg Tablet 50 Mg Oral Daily 30 Tab Simvastatin (Zocor) 40 Mg Tablet 40 Mg Oral Bedtime 30 Tab Past Home Medications Medication Directions Ordered Status Lovastatin 40 Mg Tablet, 1 Tab Oral Bedtime Discontinued Social History Social History Problem Response Recorded Date/Time Onset Date Status Hx Psychiatric Problems DEPRESSION 12/13/2017 10:30am Not Applicable Not Applicable Hx Eating Disorder No 12/13/2017 10:30am Not Applicable Not Applicable Hx Substance Use Disorder No 12/13/2017 10:30am Not Applicable Not Applicable Hx Depression Yes 12/13/2017 10:30am Not Applicable Not Applicable Hx Alcohol Use Y - HX OF ALCOHOLISM- NOT CURRENTLY DRINKING 12/13/2017 10: 30am Not Applicable Not Applicable Hx Substance Use Treatment No 12/13/2017 10:30am Not Applicable Not Applicable Hx Physical Abuse No 12/13/2017 10:30am Not Applicable Not Applicable Smoking Status Start Date Stop Date Current every day smoker Hospital Discharge Instructions No hospital discharge instruction information available. Plan of Care Discharge Date 12/17/17 2:05pm Disposition HOME, SELF-CARE Instructions/Education Provided Dizziness Vertigo Prescriptions See Medication Section Additional Instructions/Education FOLLOW UP WITH PRIMARY CARE PROVIDER IN ONE WEEK. USE WALKER AT HOME FOR SAFETY. Functional Status Query Response Date Recorded FUNCTIONAL STATUS . December 17, 2017 11:49am Assistive Devices None December 13, 2017 10:30am Ambulation Ability 1 person assist December 13, 2017 10:30am Toileting Ability Independent December 17, 2017 1:14pm Allergies, Adverse Reactions, Alerts No known allergies. Immunizations No immunization information available. Vital Signs Acute Vital Signs Vital Response Date/Time Temperature (Fahrenheit) 98.1 degrees F (97.6 - 99.5) 12/17/2017 11:48am Pulse Pulse Rate (adult) 85 bpm (60 - 90) 12/17/2017 11:55am Respiratory Rate 17 bpm (12 - 24) 12/17/2017 11:55am Blood Pressure 130/75 mm Hg 12/17/2017 11:48am Height 6 ft 0 in 12/13/2017 7:59am Weight 180 lb 12/13/2017 7:59am Body Mass Index 24.4 kg/m^2 12/13/2017 10:30am Results Laboratory Results Test Name Result Units Flags Reference Collection Date/Time Result Date/ Time Comments White Blood Count 8.40 x10e3/uL 4.8-10.8 12/14/2017 6:00am 12/14/2017 6 :44am Red Blood Count 5.08 x10e6/uL 4.3-5.7 12/14/2017 6:00am 12/14/2017 6: 44am Hemoglobin 14.7 g/dL 14.0-18.0 12/14/2017 6:00am 12/14/2017 6:44am Hematocrit 44.3 % 38.2-49.6 12/14/2017 6:00am 12/14/2017 6:44am Mean Corpuscular Volume 87.2 fL 81-99 12/14/2017 6:00am 12/14/2017 6: 44am Mean Corpuscular Hemoglobin 28.9 pg 28-32 12/14/2017 6:00am 12/14/2017 6:44am Mean Corpuscular Hemoglobin Concent 33.2 g/dL 31-35 12/14/2017 6:00am 12/14/2017 6:44am Red Cell Distribution Width 12.8 % 11.7-14.4 12/14/2017 6:00am 2017 6:44am Platelet Count 152 x10e3/uL 140-360 12/14/2017 6:00am 12/14/2017 6: 44am Neutrophils (%) (Auto) 62.9 % 38.7-80.0 12/14/2017 6:00am 12/14/2017 6: 44am Lymphocytes (%) (Auto) 27.9 % 18.0-39.1 12/14/2017 6:00am 12/14/2017 6: 44am Monocytes (%) (Auto) 6.8 % 4.4-11.3 12/14/2017 6:00am 12/14/2017 6: 44am Eosinophils (%) (Auto) 1.7 % 0.0-6.0 12/14/2017 6:00am 12/14/2017 6: 44am Basophils (%) (Auto) 0.5 % 0.0-1.0 12/14/2017 6:00am 12/14/2017 6:44am IM GRANULOCYTES % 0.2 % 0.0-1.0 12/14/2017 6:00am 12/14/2017 6:44am Neutrophils # (Auto) 5.3 2.1-6.9 12/14/2017 6:00am 12/14/2017 6:44am Lymphocytes # (Auto) 2.3 1.0-3.2 12/14/2017 6:00am 12/14/2017 6:44am Monocytes # (Auto) 0.6 0.2-0.8 12/14/2017 6:00am 12/14/2017 6:44am Eosinophils # (Auto) 0.1 0.0-0.4 12/14/2017 6:00am 12/14/2017 6:44am Basophils # (Auto) 0.0 0.0-0.1 12/14/2017 6:00am 12/14/2017 6:44am Absolute Immature Granulocyte (auto 0.02 x10e3/uL 0-0.1 12/14/2017 6: 00am 12/14/2017 6:44am Prothrombin Time 13.3 seconds 11.9-14.5 12/13/2017 8:20am 12/13/2017 8: 59am Prothromb Time International Ratio 1.09 12/13/2017 8:20am 2017 8:59am Oral Anticoagulant Therapy INR Values: 1. Low Intensity Therapy 1.5 - 2.0 2. Moderate Intensity Therapy 2.0 - 3.0 3. High Intensity Therapy(1) 2.5 - 3.5 4. High Intensity Therapy(2) 3.0 - 4.0 5. Panic Value INR > 5.0 Activated Partial Thromboplast Time 25.2 seconds 23.8-35.5 12/13/2017 8: 20am 12/13/2017 8:59am Sodium Level 137 mmol/L 136-145 12/14/2017 6:20am 12/14/2017 7:03am Potassium Level 3.9 mmol/L 3.5-5.1 12/14/2017 6:20am 12/14/2017 7:03am Chloride Level 103 mmol/L 98-107 12/14/2017 6:20am 12/14/2017 7:03am Carbon Dioxide Level 28 mmol/L 22-29 12/14/2017 6:2012/14/2017 7: 03am Anion Gap 9.9 mmol/L 8-12/14/2017 6:20am 12/14/2017 7:03am Blood Urea Nitrogen 18 mg/dL 7-12/14/2017 6:2012/14/2017 7:03am Creatinine 1.03 mg/dL 0.72-1.25 12/14/2017 6:20am 12/14/2017 7:03am BUN/Creatinine Ratio 17 6-25 12/14/2017 6:2012/14/2017 7:03am Estimat Glomerular Filtration Rate > 60 ML/MIN 60- 12/14/2017 6:20am 7:03am Ranges were taken from the National Kidney Disease Education Program and the National Kidney Foundation literature. Reference ranges: 60 or greater: Normal 16-59 (for 3 consecutive months): Chronic kidney disease 15 or less: Kidney failure Glucose Level 260 mg/dL H 74-118 12/14/2017 6:20am 12/14/2017 7:03am Calcium Level 9.2 mg/dL 8.4-10.2 12/14/2017 6:20am 12/14/2017 7:03am Bedside Glucose 153 mg/dL H 70-120 12/17/2017 7:27am 12/17/2017 7:49am Meter ID: [id number] Hemoglobin A1c Percent 7.8 % H 4.0-7.0 12/14/2017 6:50am 12/14/2017 1: 01pm Magnesium Level 1.7 MG/DL 1.3-2.1 12/14/2017 6:20am 12/14/2017 7:03am Total Bilirubin 0.4 mg/dL 0.2-1.2 12/14/2017 6:20am 12/14/2017 7:03am Aspartate Amino Transf (AST/SGOT) 16 IU/L 5-34 12/14/2017 6:20am 2017 7:03am Alanine Aminotransferase (ALT/SGPT) 14 IU/L 0-55 12/14/2017 6:20am 7:03am Total Protein 7.0 g/dL 6.5-8.1 12/14/2017 6:20am 12/14/2017 7:03am Albumin 3.6 g/dL 3.5-5.0 12/14/2017 6:20am 12/14/2017 7:03am Globulin 3.4 g/dL 2.3-3.5 12/14/2017 6:20am 12/14/2017 7:03am Albumin/Globulin Ratio 1.1 0.8-2.0 12/14/2017 6:20am 12/14/2017 7: 03am Alkaline Phosphatase 63 IU/L 40-150 12/14/2017 6:20am 12/14/2017 7: 03am Triglycerides Level 177 MG/DL H 0-149 12/14/2017 6:20am 12/14/2017 7: 03am Cholesterol Level 177 MD/DL 0-199 12/14/2017 6:20am 12/14/2017 7:03am Less than 200 mg/dL Low Risk 201 - 239 mg/dL Borderline Risk 240 mg/dl and greater High Risk LDL Cholesterol 104 MG/DL 60-130 12/14/2017 6:20am 12/14/2017 7:03am HDL Cholesterol 38 MG/DL L 40-60 12/14/2017 6:20am 12/14/2017 7:03am Cholesterol/HDL Ratio 4.7 3.9-4.7 12/14/2017 6:20am 12/14/2017 7: 03am B-Type Natriuretic Peptide 68.4 pg/mL 0-100 12/13/2017 8:20am 2017 9:20am Creatine Kinase 56 IU/L 30-200 12/14/2017 6:20am 12/14/2017 7:34am Creatine Kinase MB 1.60 ng/mL 0-5.0 12/14/2017 6:20am 12/14/2017 7: 27am Troponin I < 0.001 ng/mL 0-0.300 12/14/2017 6:20am 12/14/2017 7:27am Lipase 14 U/L 8-78 12/13/2017 8:20am 12/13/2017 9:14am Thyroid Stimulating Hormone (TSH) 2.203 uIU/mL 0.350-4.940 12/13/2017 8: 20am 12/13/2017 9:31am Procedures Procedure Status Date Provider(s) Computed tomography of brain without radiopaque contrast Active 12/13/17 KELLY CROFT Computed tomography angiography of brain Active 12/13/[address] angiography of neck Active 12/13/17 KELLY CROFT Encounters Encounter Location Arrival/Admit Date Discharge/Depart Date Attending Provider Admitted Inpatient (obs) [facility] 12/13/17 9:36am MAT NAVA MD
--- OUTSIDE RECORDS SUMMARY | 2018-02-08 05:20 | XMS REPORT | Clinical Summary ---
Author Author ALVINO [facility] [employer] [facility] Address Unknown Phone Unavailable Care Team Providers Care Quotation Checker Name Role Phone PCP Unavailable Allergies Active [...] pain 04/25/2016 Dizziness 10/02/2015 Mediastinitis 10/02/2015 Sepsis ([facility]) 09/18/2015 Cough 09/17/2015 Other specified fever 09/17/2015 COPD (chronic obstructive pulmonary disease) ([facility]) 09/09/2015 Tobacco abuse 09/09/2015 Cirrhosis ([facility]) 09/09/2015 Hepatitis C 09/09/2015 Atelectasis 09/09/2015 Insomnia 09/09/2015 Diabetes ([facility]) 09/09/2015 Thrombocytopenia ([facility]) 09/09/2015 Lung mass 09/09/2015 Hypertension 09/09/2015 Coronary [...]
[2018-02-08] MEDS ORDERED: PANTOPRAZOLE 40 MG 10ML VIAL IV STA (05:25)
[2018-02-08] MEDS ORDERED: ONDANSETRON HCL 4 MG ORAL DISINTEGRATING TAB PO ONE ×3 (05:30→10:15)
[2018-02-08] MEDS ORDERED: LORAZEPAM INJ 2 MG/ML VIAL IV ONE (05:30)
[2018-02-08] MEDS ORDERED: SODIUM CHLORIDE 0.9% 500ML 500 ML IV ONE ×3 (05:30→08:30)
[2018-02-08 05:49] LABS: BASOPHILS % 0.1 % (0.0-1.0); HEMATOCRIT 49.6 % (38.2-49.6); LYMPHOCYTES # (AUTO) 1.1 (1.0-3.2); LYMPHOCYTES % 6.1 % (18.0-39.1); MEAN CORPUSCULAR HEMOGLOBIN 28.6 pg (28-32); MEAN CORPUSCULAR HGB CONC 34.3 g/dL (31-35); MEAN CORPUSCULAR VOLUME 83.5 fL (81-99); MONOCYTES # (AUTO) 1.5 (0.2-0.8); NEUTROPHILS # (AUTO) 15.5 (2.1-6.9); NEUTROPHILS % 85.2 % (38.7-80.0); PLATELET COUNT 228 x10e3/uL (140-360); RED BLOOD COUNT 5.94 x10e6/uL (4.3-5.7); RED CELL DISTRIBUTION WIDTH 13.2 % (11.7-14.4)
[2018-02-08 06:29] LABS: ALBUMIN 4.4 g/dL (3.5-5.0); ALBUMIN/GLOBULIN RATIO 0.9 (0.8-2.0); ANION GAP 22.8 mmol/L (8-16); CALCIUM 11.2 mg/dL (8.4-10.2); CREATININE, SERUM 1.5 mg/dL (0.72-1.25); POTASSIUM 3.8 mmol/L (3.5-5.1)
[2018-02-08 06:31] LABS: INR 1.14; PROTHROMBIN TIME 13.7 seconds (11.9-14.5)
[2018-02-08 06:32] LABS: PARTIAL THROMBOPLASTIN TIME 26.5 seconds (23.8-35.5)
[2018-02-08] MEDS ORDERED: ONDANSETRON HCL 4 MG ORAL DISINTEGRATING TAB ONE (06:32)
[2018-02-08 06:36] LABS: CREATINE KINASE MB 13.8 ng/mL (0-5.0)
[2018-02-08 06:49] LABS: B-TYPE NATRIURETIC PEPTIDE2 433.1 pg/mL (0-100)
[2018-02-08] MEDS ORDERED: CEFEPIME HCL 2 GM VIAL IV SCH (07:00)
[2018-02-08] MEDS ORDERED: SODIUM CHLORIDE 0.9% 50ML 50 ML ONE (07:03)
[2018-02-08] MEDS ORDERED: IOPAMIDOL 370 MG/ML 200 ML INFUS..BTL INJ ONE (07:04)
--- NOTE | 2018-02-08 07:32 | Diagnostic Imaging Report ---
PROCEDURE: Frontal and lateral views of the chest. COMPARISON: Chest portable 12/13/2017. INDICATIONS: SHORTNESS OF BREATH FINDINGS: Lines/tubes: Left chest cardiac device with leads projecting over the expected regions of the right atrium and ventricle. Lungs: The lungs are well inflated and clear. There is no evidence of pneumonia or pulmonary edema. Bibasilar atelectasis. Pleura: There is no pleural effusion or pneumothorax. Heart and mediastinum: The heart and the mediastinum are normal. Bones: No acute bony abnormality. Degenerative changes of the thoracic spine. IMPRESSION: No acute radiographic abnormality. Dictated by: Shashank Gallegos M.D. on 02/08/2018 at 7:33 Electronically approved by: Shashank Gallegos M.D. on 02/08/2018 at 7:33
--- NOTE | 2018-02-08 07:42 | Diagnostic Imaging Report ---
PROCEDURE: CT ABDOMEN AND PELVIS WITH CONTRAST TECHNIQUE: The abdomen and pelvis were scanned utilizing a multidetector helical scanner from the diaphragm to the lesser trochanter after the IV administration of 100 cc of Isovue 370 and the oral administration of water. Coronal and sagittal multiplanar reformations were obtained. COMPARISON: None. INDICATIONS: NAUSEA AND VOMITING FINDINGS: LOWER THORAX: Bibasilar atelectasis. No pleural effusion. No focal consolidation. HEPATOBILIARY: No focal hepatic lesions. No biliary ductal dilatation. SPLEEN: No splenomegaly. Several punctate calcifications are present in the spleen. PANCREAS: No focal masses or ductal dilatation. ADRENALS: No adrenal nodules. KIDNEYS/URETERS: No hydronephrosis, stones, or solid mass lesions. Calcification in the left renal hilum, likely vascular. PELVIC ORGANS/BLADDER: Normal urinary bladder. PERITONEUM / RETROPERITONEUM: No free air or fluid. LYMPH NODES: No lymphadenopathy. VESSELS: Aortoiliac atherosclerotic calcifications. GI TRACT: No distention or wall thickening. Moderate amount of retained feces limits intraluminal evaluation of the colon. Normal appendix. No air-fluid levels. BONES AND SOFT TISSUES: Degenerative changes of the lumbar spine. IMPRESSION: No acute abnormality of the abdomen and pelvis. Dictated by: Shashank Gallegos M.D. on 02/08/2018 at 7:44 Electronically approved by: Shashank Gallegos M.D. on 02/08/2018 at 7:44
[2018-02-08 08:28] LABS: CLARITY,URINE CLEAR (CLEAR); COLOR,URINE YELLOW (YELLOW)
[2018-02-08 08:29] LABS: KETONES,URINE 2+ (NEGATIVE); LEUKOCYTE ESTERASE ,URINE NEGATIVE (NEGATIVE); NITRITE,URINE NEGATIVE (NEGATIVE); PROTEIN,URINE DIPSTICK 2+ (NEGATIVE)
[2018-02-08 08:30] LABS: BILIRUBIN,URINE NEGATIVE (NEGATIVE); URINE UROBILINOGEN 0.2 mg/dL (0.2 - 1)
[2018-02-08] MEDS ORDERED: SODIUM CHLORIDE 0.9% 1000ML 1,000 ML ONE (08:54)
[2018-02-08 09:03] LABS: EPITHELIAL CELLS,URINE RARE /LPF
[2018-02-08] MEDS ORDERED: DEXTROSE 50% SYRINGE 50 ML IV PRN (09:30)
[2018-02-08] MEDS ORDERED: INSULIN DETEMIR 100 UNIT/ML PEN SQ ONE ×2 (09:30→10:15)
[2018-02-08] MEDS ORDERED: SODIUM CHLORIDE FLUSH 10 ML SYR INJ PRN (09:30)
[2018-02-08] MEDS ORDERED: METOCLOPRAMIDE HCL 10 MG/2ML VIAL IV ONE (09:30)
--- OUTSIDE RECORDS SUMMARY | 2018-02-08 09:58 | XMS REPORT | Clinical Summary ---
Author Author ALVINO [facility] [employer] [facility] Address Unknown Phone Unavailable Care Team Providers Care Rug Scratcher Name Role Phone PCP Unavailable Allergies Active [...] pain 04/25/2016 Dizziness 10/02/2015 Mediastinitis 10/02/2015 Sepsis ([facility]) 09/18/2015 Cough 09/17/2015 Other specified fever 09/17/2015 COPD (chronic obstructive pulmonary disease) ([facility]) 09/09/2015 Tobacco abuse 09/09/2015 Cirrhosis ([facility]) 09/09/2015 Hepatitis C 09/09/2015 Atelectasis 09/09/2015 Insomnia 09/09/2015 Diabetes ([facility]) 09/09/2015 Thrombocytopenia ([facility]) 09/09/2015 Lung mass 09/09/2015 Hypertension 09/09/2015 Coronary [...]
[2018-02-08] MEDS: PANTOPRAZOLE 40 MG 10ML VIAL IV SCH ×2 (10:00→16:29)
[2018-02-08] MEDS: METOCLOPRAMIDE HCL 10 MG/2ML VIAL IV SCH ×2 (12:58→16:30)
[2018-02-08] MEDS: INSULIN REGULAR, HUMAN 100 UNIT/1 ML 3ML VIAL SQ SCH ×3 (12:58→21:00)
[2018-02-08] MEDS: ONDANSETRON HCL 4 MG ORAL DISINTEGRATING TAB PO PRN (16:30)
[2018-02-08] MEDS ORDERED: ACETAMINOPHEN 325 MG TAB PO PRN (17:30)
[2018-02-08 20:07] LABS: CREATINE KINASE MB 9.4 ng/mL (0-5.0)
[2018-02-08 20:22] LABS: BLOOD UREA NITROGEN 23 mg/dL (7-26); BUN/CREATININE RATIO 22 (6-25); CALCIUM 9.8 mg/dL (8.4-10.2); CARBON DIOXIDE 24 mmol/L (22-29); CHLORIDE 103 mmol/L (98-107); CREATININE, SERUM 1.03 mg/dL (0.72-1.25); EST GLOMERULAR FILTRATION RATE > 60 ML/MIN (60-); GLUCOSE 230 mg/dL (74-118); SODIUM 136 mmol/L (136-145)
[2018-02-08 21:40] VITALS: BP 129/75
[2018-02-08] MEDS ORDERED: PROMETHAZINE 12.5MG/ NACL 0.9% 12.5 MG/50 ML BAG IV ONE (23:00)
[2018-02-08] MEDS ORDERED: SODIUM CHLORIDE 0.9% 250ML 250 ML ONE (23:04)
[2018-02-08 23:35] VITALS: BP 129/75
[2018-02-09] VITALS: BP 122/74
[2018-02-09 04:00] VITALS: BP 128/67
[2018-02-09 07:34] LABS: BASOPHILS % 0.2 % (0.0-1.0); HEMATOCRIT 46.3 % (38.2-49.6); HEMOGLOBIN 15.5 g/dL (14.0-18.0); LYMPHOCYTES # (AUTO) 1.5 (1.0-3.2); LYMPHOCYTES % 10.3 % (18.0-39.1); MEAN CORPUSCULAR HEMOGLOBIN 28.8 pg (28-32); MEAN CORPUSCULAR HGB CONC 33.5 g/dL (31-35); MEAN CORPUSCULAR VOLUME 86.1 fL (81-99); MONOCYTES # (AUTO) 1.1 (0.2-0.8); MONOCYTES % 7.4 % (4.4-11.3); NEUTROPHILS # (AUTO) 12.2 (2.1-6.9); NEUTROPHILS % 81.6 % (38.7-80.0); PLATELET COUNT 171 x10e3/uL (140-360); RED BLOOD COUNT 5.38 x10e6/uL (4.3-5.7); RED CELL DISTRIBUTION WIDTH 13.3 % (11.7-14.4)
[2018-02-09 07:54] LABS: ALANINE AMINOTRANSFERASE 23 IU/L (0-55); ALBUMIN 3.6 g/dL (3.5-5.0); ALBUMIN/GLOBULIN RATIO 0.9 (0.8-2.0); ALKALINE PHOSPHATASE 72 IU/L (40-150); ANION GAP 16.7 mmol/L (8-16); BLOOD UREA NITROGEN 22 mg/dL (7-26); BUN/CREATININE RATIO 23 (6-25); CALCIUM 9.6 mg/dL (8.4-10.2); CARBON DIOXIDE 22 mmol/L (22-29); CHLORIDE 101 mmol/L (98-107); CREATININE, SERUM 0.95 mg/dL (0.72-1.25); EST GLOMERULAR FILTRATION RATE > 60 ML/MIN (60-); GLUCOSE 233 mg/dL (74-118); POTASSIUM 3.7 mmol/L (3.5-5.1); SODIUM 136 mmol/L (136-145)
[2018-02-09] MEDS: PANTOPRAZOLE 40 MG 10ML VIAL IV SCH ×2 (08:00→17:00)
[2018-02-09] MEDS: INSULIN REGULAR, HUMAN 100 UNIT/1 ML 3ML VIAL SQ SCH ×4 (08:00→21:15)
[2018-02-09] MEDS: METOCLOPRAMIDE HCL 10 MG/2ML VIAL IV SCH ×3 (08:00→17:00)
[2018-02-09 08:10] LABS: CREATINE KINASE MB 6.6 ng/mL (0-5.0)
[2018-02-09 08:35] VITALS: BP 163/94
[2018-02-09 11:39] VITALS: BP 178/82
[2018-02-09] MEDS ORDERED: HYDRALAZINE HCL 20 MG/ML VIAL IV PRN (13:15)
[2018-02-09] MEDS ORDERED: MECLIZINE HCL12.5 MG PO (13:23)
[2018-02-09] MEDS ORDERED: LISINOPRIL 2.5 MG TAB PO SCH (13:30)
[2018-02-09] MEDS ORDERED: CARVEDILOL 3.125 MG TAB PO SCH (13:30)
[2018-02-09] MEDS: MECLIZINE HCL 12.5 MG TAB PO SCH ×2 (13:34→20:25)
[2018-02-09 15:08] LABS: CREATINE KINASE MB 4.9 ng/mL (0-5.0)
[2018-02-09 16:38] VITALS: BP 114/61
[2018-02-09] MEDS ORDERED: ALBUTEROL SULFATE HFA 8GM INHALATION AEROSOL INH PRN (17:15)
--- NOTE | 2018-02-09 18:48 | History and Physical ---
PRIMARY CARE PROVIDER: Not on staff. CHIEF COMPLAINT: Abdominal pain with nausea and vomiting. HISTORY OF PRESENT ILLNESS: Mr. Adkins is a 62-year-old gentleman presenting with epigastric abdominal pain with nausea and vomiting for 24 hours. The patient also states that he has had poor p.o. intake of eating variable food, has poor appetite and poor intake for the last couple of months, although does not complain of significant weight loss. REVIEW OF SYSTEMS: He denies fever, chills, or weight loss. He denies sinus congestion or sore throat. He denies chest pain or palpitations. Denies shortness of breath, wheezing or cough. He complains of epigastric abdominal pain with nausea and vomiting. Denies diarrhea or melena. He denies dysuria or flank pain. Denies rash or pruritus. He denies bleeding or bruising. He denies headache, vertigo, or loss of consciousness. He denies depression, agitation, homicidal or suicidal ideation. PAST MEDICAL HISTORY: Significant for longstanding hypertension, type 2 diabetes, hyperlipidemia, coronary artery disease, chronic systolic heart failure, and anxiety. He has a distant history of a coronary artery bypass surgery. PAST SURGICAL HISTORY: He has a distant history of coronary artery bypass surgery. MEDICATIONS: Include; 1. Tylenol #3 as needed. 2. Carvedilol 3.25 mg daily. 3. Lotrisone cream as needed. 4. Pepcid 20 mg twice a day. 5. Flonase nasal spray as needed. 6. Humulin R regular insulin sliding scale at mealtime. 7. NPH insulin 30 units twice a day. 8. Zoloft 50 mg daily. 9. Albuterol rescue inhaler as needed. 10. Symbicort twice daily. 11. Aspirin 81 mg daily. 12. Plavix 75 mg daily. 13. Lasix 40 mg daily. 14. Gabapentin 100 mg 3 times a day. 15. Hydralazine 25 mg at bedtime. 16. Lisinopril 2.5 mg daily. 17. Meclizine 25 mg 3 times a day as needed. 18. Zocor 40 mg at bedtime. ALLERGIES: HE HAS A STATED ALLERGY TO AMOXICILLIN. FAMILY HISTORY: Significant for hypertension and diabetes. SOCIAL HISTORY: The patient is , but he speaks fluent Divehi. He does not smoke, drink, or use illegal drugs and he is generally independently functioning. PHYSICAL EXAMINATION PSYCHIATRIC: He is alert and oriented x3 with normal mood and affect. CONSTITUTIONAL: He has a normal body habitus. He is in no acute distress. VITAL SIGNS: Blood pressure 178/82, pulse 87 and regular, respiratory rate 19, O2 sat 94% on room air, temperature 99.0. HEENT: His head is atraumatic. His eyes are anicteric with clear conjunctivae. Ears and nares are without erythema or discharge. Oropharynx is clear. NECK: Supple with no mass or thyromegaly. LYMPHATIC: He has no palpable cervical, axillary or inguinal adenopathy. CARDIOVASCULAR: His heart has a regular rate and rhythm without murmur or extra heart sounds. He has no peripheral edema. He has no carotid bruits. He has weak dorsal pedal pulses. RESPIRATORY: Lungs are clear to auscultation and percussion with normal respiratory effort. GASTROINTESTINAL: His abdomen is soft. He has some mild midepigastric tenderness without rebound or guarding. He has no hepatosplenomegaly or masses palpable and normal bowel sounds are present. CUTANEOUS: His skin is warm and dry to touch. No rash or skin breakdown. MUSCULOSKELETAL: His joints are in normal alignment without erythema or swelling. He has no calf tenderness. He is bedridden at this point. He is not able to ambulate. NEUROLOGIC: Nonfocal with intact cranial nerves and no motor or sensory deficits. DIAGNOSTIC STUDIES: Chest x-ray shows no acute disease. CT scan of the abdomen also shows no acute disease and his UA is clear. His troponins are 0.020, 0.024, 0.011, 0.006. CK started initially high at 1348, this morning at 665 which is pretty close to normal. His chemistry profile shows normal electrolytes, CO2 of 24, creatinine 1.03, BUN 23, glucose 230, calcium 9.9. His transaminases, bilirubin, and alk phos are normal. CBC shows a white count of 18.1 with 85% neutrophils, 6% lymphocytes, hemoglobin 17.0, hematocrit 49.6, and platelet count 228,000. IMPRESSION AND PLAN 1. Mild diabetic ketoacidosis. Slight increase in anion gap and trace of hydroxybutyrate indicate mild diabetic ketoacidosis. The patient was given 1 liter of IV fluid bolus and started on Levemir and sliding scale insulin. 2. Uncontrolled type 2 diabetes. Again, the patient will be placed on what would be a reasonable dose of Levemir twice daily as well as sliding scale insulin. We will see if can get his diabetes under better control before he leaves. 3. Gastroenteritis/gastroesophageal reflux disease/gastroparesis. In view of the patient's diabetes, we will start the patient on Protonix b.i.d. before meals and Reglan 10 mg 3 times a day before meals. 1. Hypertension complicated by coronary artery disease and chronic systolic heart failure. We will continue his regular medications, which include Coreg, lisinopril, Lasix, aspirin, and Plavix along with the Protonix and Reglan for stomach. 2. For prophylaxis, the patient is using sequential compression devices for deep venous thrombosis prophylaxis and Protonix for gastrointestinal prophylaxis. Job#: [id number] STEPH
[2018-02-09] MEDS: BUDESONIDE/FORMOTEROL 160/4.5MCG INHALER INH SCH (19:24)
[2018-02-09 20:00] VITALS: BP 135/80
[2018-02-09] MEDS: CARVEDILOL 3.125 MG TAB PO SCH (20:25)
[2018-02-09] MEDS: HYDRALAZINE HCL 25 MG TAB PO SCH (20:25)
[2018-02-09] MEDS: LISINOPRIL 2.5 MG TAB PO SCH (20:26)
[2018-02-09] MEDS: GABAPENTIN 100 MG CAP PO SCH (20:26)
[2018-02-09] MEDS: METOCLOPRAMIDE HCL 10 MG TAB PO SCH (20:27)
[2018-02-09] MEDS: SIMVASTATIN 40 MG TAB PO SCH (20:27)
[2018-02-09] MEDS: ONDANSETRON HCL 4 MG ORAL DISINTEGRATING TAB PO PRN (20:59)
[2018-02-09] MEDS ORDERED: HYDRALAZINE HCL 25 MG TAB PO SCH (21:00)
[2018-02-09] MEDS: INSULIN DETEMIR 100 UNIT/ML PEN SQ SCH (21:15)
[2018-02-10] VITALS (7 sets, daily range): BP systolic 92–140; BP diastolic 51–76
[2018-02-10] MEDS ORDERED: SODIUM CHLORIDE 0.9% 1000ML 1,000 ML IV ONE (01:15)
--- NOTE | 2018-02-10 06:53 | Diagnostic Imaging Report ---
CHEST 2 VIEWS, Technique: CHEST 2 VIEWS Comparison: 02/08/2018 Clinical history: Shortness of breath DISCUSSION: Multiple overlying leads. Left chest wall ICD with right atrial and ventricular leads. Cardiomediastinal silhouette is within normal limits. Hyperinflation which can be seen with emphysema/obstructive lung disease. Stable mild linear bibasilar opacities. Calcified granulomas. No effusion or pneumothorax. IMPRESSION: Linear bibasilar opacities, favor atelectasis/scarring. Signed by: Dr Kisha Butler MD on 02/10/2018 6:50 AM
[2018-02-10] MEDS: BUDESONIDE/FORMOTEROL 160/4.5MCG INHALER INH SCH ×2 (07:35→19:20)
[2018-02-10 07:53] LABS: BASOPHILS % 0.3 % (0.0-1.0); EOSINOPHILS # (AUTO) 0.1 (0.0-0.4); EOSINOPHILS % 0.5 % (0.0-6.0); HEMATOCRIT 45.2 % (38.2-49.6); LYMPHOCYTES # (AUTO) 2.1 (1.0-3.2); LYMPHOCYTES % 22.6 % (18.0-39.1); MEAN CORPUSCULAR HEMOGLOBIN 28.7 pg (28-32); MEAN CORPUSCULAR HGB CONC 33.2 g/dL (31-35); MEAN CORPUSCULAR VOLUME 86.6 fL (81-99); MONOCYTES # (AUTO) 1.1 (0.2-0.8); MONOCYTES % 11.7 % (4.4-11.3); NEUTROPHILS % 64.6 % (38.7-80.0); PLATELET COUNT 161 x10e3/uL (140-360); RED BLOOD COUNT 5.22 x10e6/uL (4.3-5.7); RED CELL DISTRIBUTION WIDTH 13.4 % (11.7-14.4)
[2018-02-10 08:21] LABS: ANION GAP 11.7 mmol/L (8-16); BLOOD UREA NITROGEN 25 mg/dL (7-26); BUN/CREATININE RATIO 25 (6-25); CALCIUM 9.3 mg/dL (8.4-10.2); CARBON DIOXIDE 23 mmol/L (22-29); CHLORIDE 105 mmol/L (98-107); CREATININE, SERUM 0.99 mg/dL (0.72-1.25); EST GLOMERULAR FILTRATION RATE > 60 ML/MIN (60-); GLUCOSE 262 mg/dL (74-118); MAGNESIUM 1.8 MG/DL (1.3-2.1); POTASSIUM 3.7 mmol/L (3.5-5.1); SODIUM 136 mmol/L (136-145)
[2018-02-10] MEDS: PANTOPRAZOLE SOD 40 MG TABEC PO SCH ×3 (08:25→16:00)
[2018-02-10] MEDS: LISINOPRIL 2.5 MG TAB PO SCH ×2 (08:35→20:51)
[2018-02-10] MEDS: HYDRALAZINE HCL 25 MG TAB PO SCH ×2 (08:35→20:50)
[2018-02-10] MEDS: METOCLOPRAMIDE HCL 10 MG TAB PO SCH ×4 (08:35→20:51)
[2018-02-10] MEDS: CARVEDILOL 3.125 MG TAB PO SCH ×2 (08:35→20:51)
[2018-02-10] MEDS: FUROSEMIDE 40 MG TAB PO SCH (08:35)
[2018-02-10] MEDS: INSULIN REGULAR, HUMAN 100 UNIT/1 ML 3ML VIAL SQ SCH ×4 (08:35→21:00)
[2018-02-10] MEDS: ASPIRIN 81 MG CHEW TAB PO SCH (08:35)
[2018-02-10] MEDS: GABAPENTIN 100 MG CAP PO SCH ×3 (08:35→20:51)
[2018-02-10] MEDS: INSULIN DETEMIR 100 UNIT/ML PEN SQ SCH ×2 (08:35→21:00)
[2018-02-10] MEDS: CLOPIDOGREL BISULFATE 75 MG TAB PO SCH (08:35)
[2018-02-10] MEDS: MECLIZINE HCL 12.5 MG TAB PO SCH ×3 (08:35→20:50)
[2018-02-10] MEDS ORDERED: INSULIN DETEMIR 100 UNIT/ML PEN SQ ONE (08:45)
[2018-02-10] MEDS ORDERED: INSULIN DETEMIR 100 UNIT/ML PEN SQ SCH (09:00)
[2018-02-10] MEDS ORDERED: MORPHINE SULFATE 2 MG/ML SYR IV NR (09:17)
[2018-02-10] MEDS: SODIUM CHLORIDE 0.9% 1000ML 1,000 ML IV SCH ×2 (10:00→20:51)
[2018-02-10] MEDS: MORPHINE SULFATE 2 MG/ML SYR IV PRN ×2 (16:52→21:12)
[2018-02-10] MEDS: PROMETHAZINE 12.5MG/ NACL 0.9% 12.5 MG/50 ML BAG IV PRN (17:54)
[2018-02-10] MEDS: SIMVASTATIN 40 MG TAB PO SCH (20:51)
[2018-02-11] VITALS: BP 121/67
[2018-02-11] MEDS: MORPHINE SULFATE 2 MG/ML SYR IV PRN ×3 (03:01→12:40)
[2018-02-11 04:00] VITALS: BP 115/60
[2018-02-11] MEDS: SODIUM CHLORIDE 0.9% 1000ML 1,000 ML IV SCH (05:26)
[2018-02-11] MEDS: BUDESONIDE/FORMOTEROL 160/4.5MCG INHALER INH SCH (06:33)
[2018-02-11 07:02] LABS: BASOPHILS # (AUTO) 0.1 (0.0-0.1); BASOPHILS % 0.5 % (0.0-1.0); EOSINOPHILS # (AUTO) 0.1 (0.0-0.4); EOSINOPHILS % 0.9 % (0.0-6.0); HEMATOCRIT 42.3 % (38.2-49.6); LYMPHOCYTES % 21.5 % (18.0-39.1); MEAN CORPUSCULAR HGB CONC 33.1 g/dL (31-35); MEAN CORPUSCULAR VOLUME 87.6 fL (81-99); MONOCYTES % 10.2 % (4.4-11.3); NEUTROPHILS # (AUTO) 6.2 (2.1-6.9); NEUTROPHILS % 66.6 % (38.7-80.0); PLATELET COUNT 153 x10e3/uL (140-360); RED BLOOD COUNT 4.83 x10e6/uL (4.3-5.7); RED CELL DISTRIBUTION WIDTH 13.2 % (11.7-14.4)
[2018-02-11 07:28] LABS: ANION GAP 10.9 mmol/L (8-16); BLOOD UREA NITROGEN 23 mg/dL (7-26); BUN/CREATININE RATIO 26 (6-25); CALCIUM 8.8 mg/dL (8.4-10.2); CARBON DIOXIDE 24 mmol/L (22-29); CHLORIDE 110 mmol/L (98-107); CREATININE, SERUM 0.88 mg/dL (0.72-1.25); EST GLOMERULAR FILTRATION RATE > 60 ML/MIN (60-); GLUCOSE 208 mg/dL (74-118); MAGNESIUM 1.8 MG/DL (1.3-2.1); PHOSPHORUS 2.9 MG/DL (2.3-4.7); POTASSIUM 3.9 mmol/L (3.5-5.1); SODIUM 141 mmol/L (136-145)
[2018-02-11] MEDS: INSULIN REGULAR, HUMAN 100 UNIT/1 ML 3ML VIAL SQ SCH ×2 (07:30→11:22)
[2018-02-11 07:43] VITALS: BP 133/64
[2018-02-11] MEDS: MECLIZINE HCL 12.5 MG TAB PO SCH (08:19)
[2018-02-11] MEDS: ASPIRIN 81 MG CHEW TAB PO SCH (08:19)
[2018-02-11] MEDS: HYDRALAZINE HCL 25 MG TAB PO SCH (08:19)
[2018-02-11] MEDS: METOCLOPRAMIDE HCL 10 MG TAB PO SCH ×2 (08:19→11:25)
[2018-02-11] MEDS: PANTOPRAZOLE SOD 40 MG TABEC PO SCH (08:19)
[2018-02-11] MEDS: CLOPIDOGREL BISULFATE 75 MG TAB PO SCH (08:20)
[2018-02-11] MEDS: FUROSEMIDE 40 MG TAB PO SCH (08:20)
[2018-02-11] MEDS: CARVEDILOL 3.125 MG TAB PO SCH (08:20)
[2018-02-11] MEDS: GABAPENTIN 100 MG CAP PO SCH (08:20)
[2018-02-11] MEDS: INSULIN DETEMIR 100 UNIT/ML PEN SQ SCH (08:20)
[2018-02-11] MEDS: LISINOPRIL 2.5 MG TAB PO SCH (08:20)
[2018-02-11 08:21] VITALS: BP 133/64
[2018-02-11] MEDS: PROMETHAZINE 12.5MG/ NACL 0.9% 12.5 MG/50 ML BAG IV PRN (09:11)
[2018-02-11 11:22] VITALS: BP 115/64
[2018-02-11] MEDS ORDERED: LISINOPRIL2.5 MG PO (12:06)
[2018-02-11] MEDS ORDERED: PROTONIX40 MG/ML PO (12:06)
[2018-02-11] MEDS ORDERED: HUMULIN R100 UNIT/2 SQ (12:06)
[2018-02-11] MEDS ORDERED: HYDRALAZINE HCL25 MG PO (12:06)
[2018-02-11] MEDS ORDERED: Ondansetron Oral Disintegratin PO (12:06)
[2018-02-11] MEDS ORDERED: COREG3.125 MG PO (12:06)
[2018-02-11] MEDS ORDERED: METOCLOPRAMIDE10 MG PO (12:06)
[2018-02-11] MEDS ORDERED: Insulin Detemir SQ (12:06)
--- NOTE | 2018-02-11 14:30 | Discharge Summary ---
PERTINENT HISTORY AND PHYSICAL FINDINGS: Mr. Adkins is a 62-year-old man that presented with epigastric abdominal pain with nausea and vomiting for 24 hours prior to admission. He had poor oral intake, eating variable food, and then had poor appetite and poor oral intake for a couple of months prior to admission. PAST MEDICAL HISTORY: Significant for long-standing hypertension, type 2 diabetes mellitus, hyperlipidemia, coronary artery disease, chronic systolic heart failure, anxiety. He has a distant history of coronary artery bypass surgery. ADMISSION DIAGNOSES 1. Mild diabetic ketoacidosis. 2. Uncontrolled type 2 diabetes. 3. Gastroenteritis/gastroesophageal reflux disease/gastroparesis. 4. Hypertension complicated by coronary artery disease and chronic systolic congestive heart failure. DISCHARGE DIAGNOSES 1. Mild diabetic ketoacidosis. 2. Uncontrolled type 2 diabetes. 3. Gastroenteritis/gastroesophageal reflux disease/gastroparesis. 4. Hypertension complicated by coronary artery disease and chronic systolic congestive heart failure. There were no consulting physicians on this case. PERTINENT DIAGNOSTICS AND LABS: CT scan of the abdomen had shown no acute disease. His urinalysis was clear. Chemistry profile showed normal electrolytes. CO2 24, creatinine 1.03, BUN 23, glucose 230. His transaminases, bilirubin and alkaline phosphatase were normal. CBC showed a white blood cell count of 18.1 with 85% neutrophils, 6% lymphocytes, hemoglobin 17, hematocrit 49.6, and platelet count 228,000. On December 14, 2017, his hemoglobin A1c was 7.8%. Fingerstick blood glucose levels on February 09, 2018, 226, 206, 171, 154. Fingerstick blood glucose levels today 206 and 105. Sodium 141, potassium 3.9, chloride 110, CO2 24, BUN 23, creatinine 0.88, glucose 208. GFR greater than 60. Calcium 8.8. WBC 9.38, hemoglobin 14, hematocrit 42.3, and platelets 153,000. Anion gap today was 10.9. Anion gap had been 16.7 and then yesterday was 22.8. The patient had been given Levemir 25 units subcutaneous q.12 h., which was increased yesterday to 30 units subcutaneous q.12 h. and continued to receive regular insulin sliding scale. His blood sugars have normalized. He was receiving boluses of normal saline, and yesterday was put on normal saline at 100 mL an hour continuous. Protonix b.i.d. a.c. and Reglan 10 mg t.i.d. a.c. were utilized for the gastroenteritis and gastroparesis. For his blood pressure, he has been on Coreg, lisinopril, Lasix, aspirin and Plavix were continued. IV Phenergan for nausea and vomiting. He had been having vomiting and hypotension on February 09, 2018. Yesterday, he was still having multiple bouts of vomiting to the point that he was vomiting up blood. His nausea and vomiting has subsided, however. His epigastric pain yesterday was 7 on a scale of 0/10 has improved. PHYSICAL EXAMINATION VITALS: Temperature 98.3, heart rate 66, blood pressure 133/64, respirations 18, oxygen saturation 91% on room air. GENERAL: Lying supine in bed. No acute distress. LUNGS: Clear to auscultation. Respiratory pattern even and unlabored. HEENT: Extraocular eye movements intact. NECK: Supple. No lymphadenopathy, thyromegaly or JVD. CARDIOVASCULAR: S1 and S2. No murmurs or rubs. Regular rate and rhythm. He has normal saline infusing at 100 mL an hour into a peripheral IV. ABDOMEN: Bowel sounds positive. Soft and slightly tender to gentle palpation. EXTREMITIES: Without pitting edema. No clubbing, cyanosis or marked swelling. No signs or symptoms of DVT. NEUROLOGICAL: GCS 15. Nonfocal. Cranial nerves II-XII intact. The patient's disposition will be home without home health. He is to continue on an ADA diet. Follow up with his PCP, Dr. Tripp in 1-2 weeks. Activity level as tolerated. DISCHARGE MEDICATIONS 1. Regular insulin sliding scale that he was on here in the hospital. 2. Coreg 6.25 mg p.o. q.12 h. 3. Hydralazine 25 mg p.o. q.12 h. 4. Levemir insulin 30 units subcutaneous q.12 h. 5. Lisinopril 5 mg p.o. q.12 h. 6. Metoclopramide 10 mg p.o. a.c. and at night. 7. Zofran disintegrating tablets 4 mg p.o. q.4 h. p.r.n. for nausea and vomiting. 8. Protonix 40 mg p.o. b.i.d. a.c. DICTATED BY BOUBACAR OTERO, EIGHT SECTION BLOWER RICKY SIMPSON MD Job#: [id number] RI
--- NOTE | 2018-02-11 14:39 | Discharge Summary ---
PERTINENT HISTORY AND PHYSICAL FINDINGS: Mr. Adkins is a 62-year-old man who presented with epigastric abdominal pain with nausea and vomiting for 24 hours prior to admission. He had poor oral intake of eating variable food, had poor appetite for the last couple of months although denied any significant weight loss. He complained of epigastric abdominal pain with nausea and vomiting without diarrhea or melena. PAST MEDICAL HISTORY: Significant for longstanding hypertension, type 2 diabetes mellitus, hyperlipidemia, coronary artery disease, chronic systolic heart failure and anxiety as well as a distant history of coronary artery bypass surgery. STATED ALLERGY TO AMOXICILLIN. Latin-[place] but speaks fluid French. ADMISSION DIAGNOSES: Include 1. Mild diabetic ketoacidosis. 2. Uncontrolled type 2 diabetes. 3. Gastroenteritis/gastroesophageal reflux disease/gastroparesis. 4. Hypertension complicated by coronary artery disease and chronic systolic congestive heart failure. DISCHARGE DIAGNOSES 1. Mild diabetic ketoacidosis. 2. Uncontrolled type 2 diabetes mellitus. 3. Gastroenteritis/gastroesophageal reflux disease/gastroparesis/epigastric pain. 4. Hypertension complicated by chronic systolic congestive heart failure. 5. Nausea, vomiting/hematemesis. 6. History of stroke. There were no consulting physicians on this case. PERTINENT DIAGNOSTICS AND LABS: Chest x-ray was negative. CT scan of the abdomen had shown no acute disease. Urinalysis was clear. Troponins were 0.02, 0.024, 0. , 0.006. CK started initially high at 1348 however came down to 665. CO2 24, creatinine 1.03, BUN 23, glucose 230, calcium 9.9. Transaminases, bilirubin, alkaline phosphatase were all normal. CBC had a white count of 18.1 with 85% neutrophils, 6% lymphocytes, hemoglobin 17, hematocrit 49.6, and platelet count 228,000. Today on day of discharge his INCOMPLETE REPORT RICKY SIMPSON MD Job#: [id number] DG
[2018-02-11] MEDS ORDERED: LISINOPRIL 10 MG TAB PO SCH (21:00)
== END 2018-02-11 14:10 | disposition home or self-care (01) | DRG 638 ==
LOC: ER 05:18 → ERHOLD 09:48 → MED/SURG3 20:53
PROVIDERS: ADMIT Internal Medicine; ATTEND Internal Medicine
DX: E11.10 Type 2 diabetes mellitus with ketoacidosis without coma (principal); I50.22 Chronic systolic (congestive) heart failure; M62.82 Rhabdomyolysis; N17.9 Acute kidney failure, unspecified; K52.9 Noninfective gastroenteritis and colitis, unspecified; I25.10 Atherosclerotic heart disease of native coronary artery without angina pectoris; Z95.1 Presence of aortocoronary bypass graft; E11.43 Type 2 diabetes mellitus with diabetic autonomic (poly)neuropathy; K31.84 Gastroparesis; Z79.4 Long term (current) use of insulin; E78.5 Hyperlipidemia, unspecified; F41.9 Anxiety disorder, unspecified; I25.2 Old myocardial infarction; E83.52 Hypercalcemia; Z86.73 Personal history of transient ischemic attack (TIA), and cerebral infarction without residual deficits; I11.0 Hypertensive heart disease with heart failure
CPT/HCPCS: 36415; 71046; 74177; 80048; 80053; 81001; 82010; 82150; 82550; 82553; 82948; 83605; 83690; 83735; 83880; 84100; 84443; 84484; 85025; 85610; 85730; 87040; 87086; 93005; 94640; 96361; 96374; 99284; J0692; J2060; J2270; J2550; J2765; J7030; J7040; J7050; Q9967

== ENCOUNTER 2018-03-27 12:11 | Emergency (ER) | payer OTHER ==
[~2018-03-27] VITALS: Ht 182.9 cm; Wt 90.7 kg
[~2018-03-27 12:11] MED LIST changes: +HUMULIN R100 UNIT/2 SQ; +Insulin Detemir SQ; +MECLIZINE HCL12.5 MG PO; +METOCLOPRAMIDE10 MG PO; +Ondansetron Oral Disintegratin PO; +PROTONIX40 MG/ML PO
[2018-03-27 12:52] VITALS: BP 111/70
== END 2018-03-27 12:48 | disposition home or self-care (01) ==
LOC: ER 12:11
DX: Z76.0 Encounter for issue of repeat prescription (principal); I10 Essential (primary) hypertension; E11.9 Type 2 diabetes mellitus without complications; Z95.1 Presence of aortocoronary bypass graft; Z95.0 Presence of cardiac pacemaker
CPT/HCPCS: 36415; 82948; 99282

== ENCOUNTER 2018-04-15 13:03 | Emergency (ER) | payer OTHER ==
[~2018-04-15] VITALS: Ht 182.9 cm; Wt 86.2 kg
[2018-04-15] MEDS ORDERED: SODIUM CHLORIDE 0.9% 1000ML 1,000 ML IV STA ×2 (13:31→15:35)
[2018-04-15 13:58] LABS: BASOPHILS % 0.4 % (0.0-1.0); EOSINOPHILS # (AUTO) 0.2 (0.0-0.4); EOSINOPHILS % 1.4 % (0.0-6.0); HEMOGLOBIN 15.5 g/dL (14.0-18.0); LYMPHOCYTES # (AUTO) 1.8 (1.0-3.2); LYMPHOCYTES % 16.1 % (18.0-39.1); MEAN CORPUSCULAR HGB CONC 34.4 g/dL (31-35); MEAN CORPUSCULAR VOLUME 84.3 fL (81-99); MONOCYTES # (AUTO) 0.9 (0.2-0.8); MONOCYTES % 8.5 % (4.4-11.3); NEUTROPHILS # (AUTO) 8.1 (2.1-6.9); NEUTROPHILS % 73.2 % (38.7-80.0); PLATELET COUNT 162 x10e3/uL (140-360); RED BLOOD COUNT 5.34 x10e6/uL (4.3-5.7); RED CELL DISTRIBUTION WIDTH 13.5 % (11.7-14.4)
[2018-04-15 14:16] LABS: ALANINE AMINOTRANSFERASE 11 IU/L (0-55); ALBUMIN/GLOBULIN RATIO 1.2 (0.8-2.0); ALKALINE PHOSPHATASE 55 IU/L (40-150); ANION GAP 15.4 mmol/L (8-16); BLOOD UREA NITROGEN 27 mg/dL (7-26); BUN/CREATININE RATIO 27 (6-25); CALCIUM 9.6 mg/dL (8.4-10.2); CARBON DIOXIDE 24 mmol/L (22-29); CHLORIDE 107 mmol/L (98-107); CREATINE KINASE 65 IU/L (30-200); CREATININE, SERUM 0.99 mg/dL (0.72-1.25); EST GLOMERULAR FILTRATION RATE > 60 ML/MIN (60-); GLUCOSE 80 mg/dL (74-118); POTASSIUM 3.4 mmol/L (3.5-5.1); SODIUM 143 mmol/L (136-145)
--- NOTE | 2018-04-15 14:35 | Diagnostic Imaging Report ---
PROCEDURE: A single AP view of the chest. COMPARISON: 02/10/18 INDICATIONS: LOW BLOOD SUGAR FINDINGS: Lines/tubes: Stable left chest wall cardiac device. Lungs: Unavailable dens and body habitus. There is no evidence of pneumonia or pulmonary edema. Mild central vascular congestion, accentuated by low lung volumes. Again seen right lung nodular densities, likely calcified granulomas. Pleura: There is no pleural effusion or pneumothorax. Heart and mediastinum: The heart and the mediastinum are unremarkable. Bones: No acute bony abnormality. IMPRESSION: Mild central vascular congestion, accentuated by low lung volumes. Otherwise, unremarkable. Dictated by: Fortino Persaud M.D. on 04/15/2018 at 14:39 Electronically approved by: Fortino Persaud M.D. on 04/15/2018 at 14:39
[2018-04-15] MEDS ORDERED: SODIUM CHLORIDE 0.9% 1000ML 1,000 ML IV SCH (15:45)
[2018-04-15 17:46] LABS: BILIRUBIN,URINE NEGATIVE (NEGATIVE); CLARITY,URINE CLEAR (CLEAR); COLOR,URINE YELLOW (YELLOW); KETONES,URINE NEGATIVE (NEGATIVE); LEUKOCYTE ESTERASE ,URINE NEGATIVE (NEGATIVE); NITRITE,URINE NEGATIVE (NEGATIVE); PROTEIN,URINE DIPSTICK NEGATIVE (NEGATIVE); URINE UROBILINOGEN 0.2 mg/dL (0.2 - 1)
[2018-04-15 18:16] VITALS: BP 106/69
== END 2018-04-15 18:39 | disposition home or self-care (01) ==
LOC: ER 13:03
DX: R55 Syncope and collapse (principal); R53.1 Weakness; E86.1 Hypovolemia; K52.9 Noninfective gastroenteritis and colitis, unspecified; I95.2 Hypotension due to drugs; I10 Essential (primary) hypertension; E11.9 Type 2 diabetes mellitus without complications; I25.10 Atherosclerotic heart disease of native coronary artery without angina pectoris; J44.9 Chronic obstructive pulmonary disease, unspecified
CPT/HCPCS: 36415; 71045; 80053; 81001; 82550; 82553; 82948; 84443; 84484; 85025; 87086; 93005; 99284; J7030

== ENCOUNTER 2020-11-18 19:04 | Inpatient (IN) | payer MEDICARE, OTHER ==
[~2020-11-18] VITALS: Ht 182.9 cm; Wt 86.2 kg
[2020-11-18] MEDS ORDERED: ONDANSETRON HCL INJ 2MG/ML 2ML 2 MG/ML VIAL IV STA (20:48)
[2020-11-18] MEDS ORDERED: MECLIZINE HCL 12.5 MG TAB PO ONE (21:00)
[2020-11-18 21:41] LABS: BASOPHILS % 0.2 % (0.0-1.0); HEMATOCRIT 49.5 % (38.2-49.6); HEMOGLOBIN 16.3 g/dL (14.0-18.0); LYMPHOCYTES # (AUTO) 1.1 (1.0-3.2); LYMPHOCYTES % 6.4 % (18.0-39.1); MEAN CORPUSCULAR HEMOGLOBIN 27.6 pg (28-32); MEAN CORPUSCULAR HGB CONC 32.9 g/dL (31-35); MEAN CORPUSCULAR VOLUME 83.9 fL (81-99); MONOCYTES # (AUTO) 1.5 (0.2-0.8); MONOCYTES % 8.3 % (4.4-11.3); NEUTROPHILS # (AUTO) 15.1 (2.1-6.9); NEUTROPHILS % 84.5 % (38.7-80.0); PLATELET COUNT 192 x10e3/uL (140-360); RED CELL DISTRIBUTION WIDTH 14.5 % (11.7-14.4)
[2020-11-18 21:58] LABS: ALANINE AMINOTRANSFERASE 22 IU/L (0-55); ALBUMIN 4.4 g/dL (3.5-5.0); ALBUMIN/GLOBULIN RATIO 1.3 (0.8-2.0); ALKALINE PHOSPHATASE 87 IU/L (40-150); ANION GAP 15.9 mmol/L (8-16); BLOOD UREA NITROGEN 29 mg/dL (7-26); BUN/CREATININE RATIO 26 (6-25); CALCIUM 9.9 mg/dL (8.4-10.2); CARBON DIOXIDE 26 mmol/L (22-29); CHLORIDE 100 mmol/L (98-107); CREATINE KINASE 2709 IU/L (30-200); CREATININE, SERUM 1.12 mg/dL (0.72-1.25); EST GLOMERULAR FILTRATION RATE > 60 ML/MIN (60-); GLUCOSE 243 mg/dL (74-118); POTASSIUM 3.9 mmol/L (3.5-5.1); SODIUM 138 mmol/L (136-145)
[2020-11-18] MEDS ORDERED: SODIUM CHLORIDE 0.9% 50ML 50 ML ONE (22:45)
[2020-11-18] MEDS ORDERED: IOPAMIDOL 370 MG/ML 200 ML INFUS..BTL INJ ONE (22:45)
[2020-11-19] VITALS (8 sets, daily range): BP systolic 112–130; BP diastolic 68–89
[2020-11-19] MEDS ORDERED: SODIUM CHLORIDE 0.9% 1000ML 1,000 ML IV ONE (00:15)
[2020-11-19 01:27] LABS: BASOPHILS % 0.2 % (0.0-1.0); EOSINOPHILS % 0.1 % (0.0-6.0); HEMATOCRIT 47.1 % (38.2-49.6); HEMOGLOBIN 15.7 g/dL (14.0-18.0); LYMPHOCYTES % 6.1 % (18.0-39.1); MEAN CORPUSCULAR HEMOGLOBIN 27.9 pg (28-32); MEAN CORPUSCULAR HGB CONC 33.3 g/dL (31-35); MEAN CORPUSCULAR VOLUME 83.8 fL (81-99); MONOCYTES # (AUTO) 1.4 (0.2-0.8); MONOCYTES % 8.3 % (4.4-11.3); NEUTROPHILS # (AUTO) 14.2 (2.1-6.9); NEUTROPHILS % 84.8 % (38.7-80.0); PLATELET COUNT 176 x10e3/uL (140-360); RED BLOOD COUNT 5.62 x10e6/uL (4.3-5.7); RED CELL DISTRIBUTION WIDTH 14.6 % (11.7-14.4)
[2020-11-19 01:44] LABS: ANION GAP 16.9 mmol/L (8-16); BLOOD UREA NITROGEN 29 mg/dL (7-26); BUN/CREATININE RATIO 30 (6-25); CALCIUM 9.3 mg/dL (8.4-10.2); CARBON DIOXIDE 22 mmol/L (22-29); CHLORIDE 103 mmol/L (98-107); CREATINE KINASE 2751 IU/L (30-200); CREATININE, SERUM 0.97 mg/dL (0.72-1.25); EST GLOMERULAR FILTRATION RATE > 60 ML/MIN (60-); GLUCOSE 233 mg/dL (74-118); POTASSIUM 3.9 mmol/L (3.5-5.1); SODIUM 138 mmol/L (136-145)
[2020-11-19] MEDS ORDERED: ONDANSETRON HCL INJ 2MG/ML 2ML 2 MG/ML VIAL IV PRN (03:00)
[2020-11-19] MEDS ORDERED: DEXTROSE 50% SYRINGE 50 ML IV PRN (03:00)
[2020-11-19] MEDS: SODIUM CHLORIDE 0.9% 1000ML 1,000 ML IV SCH ×2 (03:42→08:54)
[2020-11-19] MEDS ORDERED: LASIX20 MG PO (05:31)
[2020-11-19] MEDS ORDERED: LEVEMIR100 UNIT/1 (05:31)
[2020-11-19] MEDS ORDERED: TYLENOL # 31 EA PO (05:31)
[2020-11-19] MEDS ORDERED: AMITRIPTYLINE H25 MG (05:31)
[2020-11-19] MEDS: INSULIN REGULAR, HUMAN 100 UNIT/1 ML 3ML VIAL SQ SCH ×4 (07:53→21:00)
[2020-11-19 09:35] LABS: CREATINE KINASE MB 12.5 ng/mL (0-5.0)
[2020-11-19] MEDS ORDERED: PANTOPRAZOLE 40 MG 10ML VIAL IV SCH (13:00)
[2020-11-19] MEDS: ACETAMINOPHEN/CODEINE 300MG - 30MG TAB PO PRN (16:31)
[2020-11-19 16:43] LABS: CLARITY,URINE SL CLOUDY (CLEAR); COLOR,URINE YELLOW (YELLOW); LEUKOCYTE ESTERASE ,URINE NEGATIVE (NEGATIVE); NITRITE,URINE NEGATIVE (NEGATIVE); PROTEIN,URINE DIPSTICK 2+ (NEGATIVE)
[2020-11-19 16:44] LABS: KETONES,URINE 2+ (NEGATIVE); URINE UROBILINOGEN 0.2 mg/dL (0.2 - 1)
[2020-11-19 17:00] LABS: BACTERIA,URINE FEW /HPF; EPITHELIAL CELLS,URINE FEW /LPF; WBC,URINE (MAN) 21-50 /HPF (0-5)
[2020-11-19 18:13] LABS: CREATINE KINASE MB 8.9 ng/mL (0-5.0)
[2020-11-19] MEDS: PANTOPRAZOLE 40 MG 10ML VIAL IV SCH (21:50)
[2020-11-20] VITALS (8 sets, daily range): BP systolic 90–130; BP diastolic 57–80
[2020-11-20] MEDS: ACETAMINOPHEN/CODEINE 300MG - 30MG TAB PO PRN ×4 (05:04→23:32)
[2020-11-20 05:22] LABS: BASOPHILS # (AUTO) 0.1 (0.0-0.1); BASOPHILS % 0.4 % (0.0-1.0); EOSINOPHILS % 0.3 % (0.0-6.0); HEMATOCRIT 48.3 % (38.2-49.6); HEMOGLOBIN 15.2 g/dL (14.0-18.0); LYMPHOCYTES # (AUTO) 2.7 (1.0-3.2); LYMPHOCYTES % 20.1 % (18.0-39.1); MEAN CORPUSCULAR HEMOGLOBIN 27.4 pg (28-32); MEAN CORPUSCULAR HGB CONC 31.5 g/dL (31-35); MONOCYTES # (AUTO) 1.3 (0.2-0.8); MONOCYTES % 10.1 % (4.4-11.3); NEUTROPHILS # (AUTO) 9.1 (2.1-6.9); NEUTROPHILS % 68.7 % (38.7-80.0); PLATELET COUNT 165 x10e3/uL (140-360); RED BLOOD COUNT 5.55 x10e6/uL (4.3-5.7); RED CELL DISTRIBUTION WIDTH 14.5 % (11.7-14.4)
[2020-11-20 05:53] LABS: ALANINE AMINOTRANSFERASE 32 IU/L (0-55); ALBUMIN 3.7 g/dL (3.5-5.0); ALBUMIN/GLOBULIN RATIO 1.1 (0.8-2.0); ALKALINE PHOSPHATASE 77 IU/L (40-150); BLOOD UREA NITROGEN 20 mg/dL (7-26); BUN/CREATININE RATIO 22 (6-25); CALCIUM 8.8 mg/dL (8.4-10.2); CARBON DIOXIDE 20 mmol/L (22-29); CHLORIDE 109 mmol/L (98-107); CREATININE, SERUM 0.93 mg/dL (0.72-1.25); EST GLOMERULAR FILTRATION RATE > 60 ML/MIN (60-); GLUCOSE 144 mg/dL (74-118); SODIUM 140 mmol/L (136-145)
[2020-11-20] MEDS: INSULIN REGULAR, HUMAN 100 UNIT/1 ML 3ML VIAL SQ SCH ×4 (07:38→21:00)
[2020-11-20] MEDS: PANTOPRAZOLE 40 MG 10ML VIAL IV SCH ×2 (07:41→17:10)
[2020-11-21] VITALS: BP 136/77
[2020-11-21] MEDS: ACETAMINOPHEN/CODEINE 300MG - 30MG TAB PO PRN (05:40)
[2020-11-21 07:05] LABS: BASOPHILS # (AUTO) 0.1 (0.0-0.1); BASOPHILS % 0.6 % (0.0-1.0); EOSINOPHILS # (AUTO) 0.2 (0.0-0.4); EOSINOPHILS % 1.8 % (0.0-6.0); HEMATOCRIT 45.3 % (38.2-49.6); HEMOGLOBIN 14.6 g/dL (14.0-18.0); LYMPHOCYTES # (AUTO) 1.9 (1.0-3.2); LYMPHOCYTES % 21.1 % (18.0-39.1); MEAN CORPUSCULAR HEMOGLOBIN 27.7 pg (28-32); MEAN CORPUSCULAR HGB CONC 32.2 g/dL (31-35); MONOCYTES # (AUTO) 1.1 (0.2-0.8); MONOCYTES % 11.9 % (4.4-11.3); NEUTROPHILS # (AUTO) 5.8 (2.1-6.9); NEUTROPHILS % 64.4 % (38.7-80.0); PLATELET COUNT 148 x10e3/uL (140-360); RED BLOOD COUNT 5.27 x10e6/uL (4.3-5.7); RED CELL DISTRIBUTION WIDTH 14.5 % (11.7-14.4)
[2020-11-21 07:28] LABS: ANION GAP 12.8 mmol/L (8-16); BLOOD UREA NITROGEN 21 mg/dL (7-26); BUN/CREATININE RATIO 26 (6-25); CALCIUM 8.3 mg/dL (8.4-10.2); CARBON DIOXIDE 23 mmol/L (22-29); CHLORIDE 108 mmol/L (98-107); CREATININE, SERUM 0.82 mg/dL (0.72-1.25); EST GLOMERULAR FILTRATION RATE > 60 ML/MIN (60-); GLUCOSE 204 mg/dL (74-118); POTASSIUM 3.8 mmol/L (3.5-5.1); SODIUM 140 mmol/L (136-145)
[2020-11-21] MEDS: INSULIN REGULAR, HUMAN 100 UNIT/1 ML 3ML VIAL SQ SCH (07:30)
[2020-11-21 07:43] VITALS: BP 132/70
[2020-11-21 07:45] VITALS: BP 132/70
[2020-11-21] MEDS: PANTOPRAZOLE 40 MG 10ML VIAL IV SCH (08:37)
[2020-11-21 11:18] VITALS: BP 127/70
== END 2020-11-21 12:32 | disposition home or self-care (01) | DRG 558 ==
LOC: ER 21:15 → ERHOLD 11-19 02:55 → MED/SURG2 11-19 04:17 → OBSVTOIN 11-19 09:53
PROVIDERS: ADMIT Internal Medicine; ATTEND Internal Medicine
DX: M62.82 Rhabdomyolysis (principal); A09 Infectious gastroenteritis and colitis, unspecified; E11.9 Type 2 diabetes mellitus without complications; E86.0 Dehydration; I10 Essential (primary) hypertension; E78.5 Hyperlipidemia, unspecified; Z95.810 Presence of automatic (implantable) cardiac defibrillator; Z88.1 Allergy status to other antibiotic agents; Z88.8 Allergy status to other drugs, medicaments and biological substances; I25.10 Atherosclerotic heart disease of native coronary artery without angina pectoris; Z95.1 Presence of aortocoronary bypass graft; F17.210 Nicotine dependence, cigarettes, uncomplicated; Z20.822 Contact with and (suspected) exposure to COVID-19
CPT/HCPCS: 36415; 70450; 74177; 80048; 80053; 81001; 82550; 82553; 82948; 83605; 84484; 85025; 87040; 93005; 99251; 99284; J2405; J7030; Q9967; U0002

== ENCOUNTER 2021-02-24 18:27 | Emergency (ER) | payer MEDICARE, OTHER ==
[~2021-02-24] VITALS: Ht 182.9 cm; Wt 86.2 kg
[~2021-02-24 18:27] MED LIST changes: +AMITRIPTYLINE H25 MG; +LASIX20 MG PO; +LEVEMIR100 UNIT/1; +TYLENOL # 31 EA PO
[2021-02-24 19:15] LABS: BASOPHILS % 0.1 % (0.0-1.0); HEMATOCRIT 48.6 % (38.2-49.6); HEMOGLOBIN 16.4 g/dL (14.0-18.0); LYMPHOCYTES # (AUTO) 1.5 (1.0-3.2); LYMPHOCYTES % 10.4 % (18.0-39.1); MEAN CORPUSCULAR HEMOGLOBIN 28.5 pg (28-32); MEAN CORPUSCULAR HGB CONC 33.7 g/dL (31-35); MEAN CORPUSCULAR VOLUME 84.5 fL (81-99); MONOCYTES # (AUTO) 1.4 (0.2-0.8); MONOCYTES % 9.9 % (4.4-11.3); NEUTROPHILS # (AUTO) 11.3 (2.1-6.9); NEUTROPHILS % 79.2 % (38.7-80.0); PLATELET COUNT 167 x10e3/uL (140-360); RED BLOOD COUNT 5.75 x10e6/uL (4.3-5.7); RED CELL DISTRIBUTION WIDTH 14.3 % (11.7-14.4)
[2021-02-24 19:33] LABS: ALBUMIN 4.7 g/dL (3.5-5.0); ALBUMIN/GLOBULIN RATIO 1.2 (0.8-2.0); ANION GAP 21.3 mmol/L (8-16); CALCIUM 9.9 mg/dL (8.4-10.2); CREATININE, SERUM 1.21 mg/dL (0.72-1.25); POTASSIUM 4.3 mmol/L (3.5-5.1)
[2021-02-24 19:39] LABS: CREATINE KINASE MB 7.6 ng/mL (0-5.0)
[2021-02-24] MEDS ORDERED: SODIUM CHLORIDE 0.9% 1000ML 1,000 ML IV STA ×2 (20:07)
[2021-02-24] MEDS ORDERED: MAGNESIUM SULF 1GRAM/DEXTROSE 100 ML IV PRN (20:15)
[2021-02-24] MEDS ORDERED: SODIUM CHLORIDE 0.9% 1000ML 1,000 ML IV SCH (20:15)
[2021-02-24] MEDS ORDERED: POTASSIUM CHLORIDE 20MEQ/100ML 100 ML IV SCH (20:15)
[2021-02-24] MEDS ORDERED: DEXTROSE 5%/0.45% SOD CHL 1,000 ML IV SCH (20:15)
[2021-02-24] MEDS ORDERED: INSULIN REGULAR, HUMAN 3ML VL 100 UNIT in SODIUM CHLORIDE 0.9% 100 ML IV SCH ×2 (20:15)
[2021-02-24] MEDS ORDERED: IOPAMIDOL 370 MG/ML 200 ML INFUS..BTL INJ ONE (20:34)
[2021-02-24] MEDS ORDERED: SODIUM CHLORIDE 0.9% 50ML 50 ML ONE (20:34)
[2021-02-24 22:53] LABS: ANION GAP 16.6 mmol/L (8-16); BLOOD UREA NITROGEN 29 mg/dL (7-26); BUN/CREATININE RATIO 33 (6-25); CALCIUM 8.8 mg/dL (8.4-10.2); CARBON DIOXIDE 24 mmol/L (22-29); CHLORIDE 104 mmol/L (98-107); CREATININE, SERUM 0.88 mg/dL (0.72-1.25); EST GLOMERULAR FILTRATION RATE > 60 ML/MIN (60-); GLUCOSE 118 mg/dL (74-118); MAGNESIUM 2.1 MG/DL (1.3-2.1); POTASSIUM 3.6 mmol/L (3.5-5.1); SODIUM 141 mmol/L (136-145)
[2021-02-24 23:39] LABS: CREATINE KINASE MB 2.6 ng/mL (0-5.0)
[2021-02-24 23:55] LABS: AMPHETAMINES SCREEN,URINE NEGATIVE (NEGATIVE); BENZODIAZEPINES SCREEN,URINE NEGATIVE (NEGATIVE); CLARITY,URINE CLEAR (CLEAR); COLOR,URINE YELLOW (YELLOW); KETONES,URINE 1+ (NEGATIVE); LEUKOCYTE ESTERASE ,URINE NEGATIVE (NEGATIVE); NITRITE,URINE NEGATIVE (NEGATIVE); PHENCYCLIDINE SCREEN,URINE NEGATIVE (NEGATIVE); PROTEIN,URINE DIPSTICK 2+ (NEGATIVE)
[2021-02-24 23:56] LABS: URINE UROBILINOGEN 0.2 mg/dL (0.2 - 1)
[2021-02-24 23:57] LABS: BACTERIA,URINE RARE /HPF; EPITHELIAL CELLS,URINE FEW /LPF; WBC,URINE (MAN) 0-5 /HPF (0-5)
[2021-02-25 00:45] VITALS: BP 144/65
== END 2021-02-25 01:00 | disposition home or self-care (01) ==
LOC: ER 19:00
DX: R10.30 Lower abdominal pain, unspecified (principal); E11.65 Type 2 diabetes mellitus with hyperglycemia; I10 Essential (primary) hypertension; J44.9 Chronic obstructive pulmonary disease, unspecified; I50.9 Heart failure, unspecified; I25.10 Atherosclerotic heart disease of native coronary artery without angina pectoris; Z86.73 Personal history of transient ischemic attack (TIA), and cerebral infarction without residual deficits; K21.9 Gastro-esophageal reflux disease without esophagitis; I25.2 Old myocardial infarction
CPT/HCPCS: 36415; 74177; 80048; 80053; 80307; 81001; 82550; 82553; 82948; 83690; 83735; 84484; 85025; 93005; 99284; J1817; J3475; J7030; J7050; Q9967; U0002

== ENCOUNTER 2021-05-31 09:36 | Inpatient (IN) | payer MEDICARE, OTHER ==
[~2021-05-31] VITALS: Ht 182.9 cm; Wt 86.2 kg
[~2021-05-31 09:36] MED LIST changes: -LEVEMIR100 UNIT/1; +LEVEMIR100 UNIT/1 SC
[2021-05-31] MEDS ORDERED: MORPHINE SULFATE INJ 4 MG/ML INJ 1ML IV STA (10:49)
[2021-05-31] MEDS ORDERED: ONDANSETRON HCL INJ 2MG/ML 2ML 2 MG/ML VIAL IV STA (10:49)
[2021-05-31 10:53] LABS: BASOPHILS % 0.2 % (0.0-1.0); HEMATOCRIT 43.2 % (38.2-49.6); HEMOGLOBIN 14.3 g/dL (14.0-18.0); LYMPHOCYTES # (AUTO) 1.1 (1.0-3.2); LYMPHOCYTES % 4.6 % (18.0-39.1); MEAN CORPUSCULAR HEMOGLOBIN 28.3 pg (28-32); MEAN CORPUSCULAR HGB CONC 33.1 g/dL (31-35); MEAN CORPUSCULAR VOLUME 85.5 fL (81-99); MONOCYTES # (AUTO) 1.4 (0.2-0.8); NEUTROPHILS % 88.1 % (38.7-80.0); PLATELET COUNT 189 x10e3/uL (140-360); RED BLOOD COUNT 5.05 x10e6/uL (4.3-5.7); RED CELL DISTRIBUTION WIDTH 14.6 % (11.7-14.4)
[2021-05-31 11:13] LABS: ALBUMIN 4.2 g/dL (3.5-5.0); ALBUMIN/GLOBULIN RATIO 1.1 (0.8-2.0); ANION GAP 15.5 mmol/L (8-16); CALCIUM 9.9 mg/dL (8.4-10.2); CREATININE, SERUM 1.01 mg/dL (0.72-1.25); POTASSIUM 3.5 mmol/L (3.5-5.1)
[2021-05-31] MEDS ORDERED: SODIUM CHLORIDE 0.9% 1000ML 1,000 ML IV STA (11:52)
[2021-05-31] MEDS ORDERED: IOPAMIDOL 370 MG/ML 200 ML INFUS..BTL INJ ONE (12:49)
[2021-05-31] MEDS ORDERED: SODIUM CHLORIDE 0.9% 50ML 50 ML ONE (12:49)
[2021-05-31 14:16] LABS: CLARITY,URINE CLEAR (CLEAR); COLOR,URINE YELLOW (YELLOW); KETONES,URINE TRACE (NEGATIVE); LEUKOCYTE ESTERASE ,URINE NEGATIVE (NEGATIVE); NITRITE,URINE NEGATIVE (NEGATIVE); PROTEIN,URINE DIPSTICK 2+ (NEGATIVE); URINE UROBILINOGEN 0.2 mg/dL (0.2 - 1)
[2021-05-31 14:24] LABS: EPITHELIAL CELLS,URINE RARE /LPF; RBC,URINE 0-5 /HPF (0-5)
[2021-05-31 14:56] LABS: BASOPHILS # (AUTO) 0.1 (0.0-0.1); BASOPHILS % 0.2 % (0.0-1.0); HEMATOCRIT 42.4 % (38.2-49.6); HEMOGLOBIN 13.9 g/dL (14.0-18.0); LYMPHOCYTES # (AUTO) 1.5 (1.0-3.2); LYMPHOCYTES % 6.9 % (18.0-39.1); MEAN CORPUSCULAR HEMOGLOBIN 28.4 pg (28-32); MEAN CORPUSCULAR HGB CONC 32.8 g/dL (31-35); MEAN CORPUSCULAR VOLUME 86.7 fL (81-99); MONOCYTES # (AUTO) 1.4 (0.2-0.8); MONOCYTES % 6.4 % (4.4-11.3); NEUTROPHILS # (AUTO) 19.1 (2.1-6.9); NEUTROPHILS % 85.6 % (38.7-80.0); PLATELET COUNT 167 x10e3/uL (140-360); RED BLOOD COUNT 4.89 x10e6/uL (4.3-5.7); RED CELL DISTRIBUTION WIDTH 14.8 % (11.7-14.4)
[2021-05-31 15:17] LABS: ALBUMIN/GLOBULIN RATIO 1.1 (0.8-2.0); ANION GAP 14.8 mmol/L (8-16); CALCIUM 9.1 mg/dL (8.4-10.2); CREATININE, SERUM 0.88 mg/dL (0.72-1.25); POTASSIUM 3.8 mmol/L (3.5-5.1)
[2021-05-31] MEDS ORDERED: PIPERACILLIN/TAZOBACTAM 3.375 GM in SODIUM CHLORIDE 0.9% 50ML 50 ML IV SCH (15:45)
[2021-05-31] MEDS ORDERED: ONDANSETRON HCL INJ 2MG/ML 2ML 2 MG/ML VIAL IV PRN (15:45)
[2021-05-31] MEDS: METRONIDAZOLE 500MG/NS 100ML 100 ML IV SCH ×2 (17:00→18:59)
[2021-05-31] MEDS: MORPHINE SULFATE INJ 4 MG/ML INJ 1ML IV PRN (18:59)
[2021-05-31] MEDS: SODIUM CHLORIDE 0.9% 1000ML 1,000 ML IV SCH (18:59)
[2021-05-31] MEDS: CIPROFLOXACIN 400 MG/D5W 200ML 200 ML IV SCH ×2 (20:43→20:45)
[2021-05-31 21:17] VITALS: BP 153/70
[2021-05-31 22:05] VITALS: BP 153/70
[2021-05-31 22:40] VITALS: BP 153/70
[2021-05-31] MEDS ORDERED: OMEPRAZOLE40 MG PO (23:18)
[2021-05-31] MEDS ORDERED: ONDANSETRON ODT4 MG PO (23:23)
[2021-05-31] MEDS ORDERED: MIRTAZAPINE7.5 MG PO (23:26)
[2021-05-31] MEDS ORDERED: TRADJENTA5 MG PO (23:28)
[2021-05-31] MEDS ORDERED: ATORVASTATIN CA20 MG PO (23:31)
[2021-05-31] MEDS ORDERED: TIZANIDINE HCL4 MG PO (23:37)
[2021-05-31] MEDS ORDERED: MONTELUKAST SOD10 MG PO (23:39)
[2021-06-01] VITALS (8 sets, daily range): BP systolic 112–156; BP diastolic 51–81
[2021-06-01] MEDS ORDERED: DEXTROSE 50% SYRINGE 50 ML IV PRN ×3 (00:15→13:15)
[2021-06-01] MEDS ORDERED: POTASSIUM CHLORIDE 20 MEQ TAB CR PO PRN (00:15)
[2021-06-01] MEDS ORDERED: MELATONIN 5 MG TABLET PO PRN (00:15)
[2021-06-01] MEDS ORDERED: SIMETHICONE 80 MG CHEW PO PRN (00:15)
[2021-06-01] MEDS ORDERED: HYDRALAZINE HCL 20 MG/ML VIAL IV PRN (00:15)
[2021-06-01] MEDS ORDERED: DOCUSATE SODIUM 100 MG CAP PO PRN (00:15)
[2021-06-01] MEDS ORDERED: ALBUTEROL/IPRATROPIUM 3 ML NEB NEB PRN (00:15)
[2021-06-01] MEDS ORDERED: LIDOCAINE 4% PATCH TP PRN (00:15)
[2021-06-01] MEDS ORDERED: ACETAMINOPHEN 325 MG TAB PO PRN (00:15)
[2021-06-01] MEDS ORDERED: BENZONATATE 100 MG CAP PO PRN (00:15)
[2021-06-01] MEDS ORDERED: DIPHENHYDRAMINE HCL 25 MG CAP PO PRN (00:15)
[2021-06-01] MEDS ORDERED: METRONIDAZOLE 500MG/NS 100ML 100 ML IV STA (01:49)
[2021-06-01] MEDS: METRONIDAZOLE 500MG/NS 100ML 100 ML IV SCH ×3 (05:11→18:02)
[2021-06-01] MEDS: SODIUM CHLORIDE 0.9% 1000ML 1,000 ML IV SCH ×3 (05:12→17:41)
[2021-06-01 05:23] LABS: BASOPHILS % 0.2 % (0.0-1.0); EOSINOPHILS % 0.1 % (0.0-6.0); HEMATOCRIT 40.4 % (38.2-49.6); HEMOGLOBIN 13.4 g/dL (14.0-18.0); LYMPHOCYTES # (AUTO) 1.1 (1.0-3.2); LYMPHOCYTES % 6.1 % (18.0-39.1); MEAN CORPUSCULAR HEMOGLOBIN 28.8 pg (28-32); MEAN CORPUSCULAR HGB CONC 33.2 g/dL (31-35); MEAN CORPUSCULAR VOLUME 86.7 fL (81-99); MONOCYTES % 5.6 % (4.4-11.3); NEUTROPHILS % 87.2 % (38.7-80.0); PLATELET COUNT 161 x10e3/uL (140-360); RED BLOOD COUNT 4.66 x10e6/uL (4.3-5.7); RED CELL DISTRIBUTION WIDTH 14.9 % (11.7-14.4)
[2021-06-01 05:55] LABS: ALBUMIN 3.7 g/dL (3.5-5.0); ALBUMIN/GLOBULIN RATIO 1.1 (0.8-2.0); ANION GAP 15.7 mmol/L (8-16); CALCIUM 8.7 mg/dL (8.4-10.2); CREATININE, SERUM 0.77 mg/dL (0.72-1.25); POTASSIUM 3.7 mmol/L (3.5-5.1)
[2021-06-01] MEDS ORDERED: PANTOPRAZOLE SOD 40 MG TABEC PO SCH (07:30)
[2021-06-01] MEDS: SERTRALINE HCL 100 MG TAB PO SCH (08:55)
[2021-06-01] MEDS: CARVEDILOL 3.125 MG TAB PO SCH ×2 (08:55→21:00)
[2021-06-01] MEDS: CIPROFLOXACIN 400 MG/D5W 200ML 200 ML IV SCH ×2 (08:56→18:56)
[2021-06-01] MEDS ORDERED: BUDESONIDE/FORMOTEROL 160/4.5MCG INHALER INH SCH (09:00)
[2021-06-01] MEDS: ONDANSETRON HCL INJ 2MG/ML 2ML 2 MG/ML VIAL IV PRN ×2 (13:30→22:13)
[2021-06-01] MEDS: MORPHINE SULFATE INJ 4 MG/ML INJ 1ML IV PRN ×2 (15:36→22:13)
[2021-06-01] MEDS: INSULIN LISPRO 100 UNIT/1 ML 3ML VIAL SQ SCH ×2 (17:00→21:00)
[2021-06-01] MEDS: ENOXAPARIN SOD INJ 40 MG/0.4 ML SYR SC SCH (18:02)
[2021-06-01] MEDS: MONTELUKAST SODIUM 10 MG TAB PO SCH (21:00)
[2021-06-02] VITALS (7 sets, daily range): BP systolic 104–130; BP diastolic 65–91
[2021-06-02] MEDS: SODIUM CHLORIDE 0.9% 1000ML 1,000 ML IV SCH ×2 (06:00→21:07)
[2021-06-02] MEDS: METRONIDAZOLE 500MG/NS 100ML 100 ML IV SCH ×5 (06:00→23:41)
[2021-06-02 06:50] LABS: BASOPHILS % 0.3 % (0.0-1.0); EOSINOPHILS # (AUTO) 0.1 (0.0-0.4); EOSINOPHILS % 1.2 % (0.0-6.0); HEMATOCRIT 39.3 % (38.2-49.6); LYMPHOCYTES # (AUTO) 1.7 (1.0-3.2); LYMPHOCYTES % 17.1 % (18.0-39.1); MEAN CORPUSCULAR HEMOGLOBIN 28.7 pg (28-32); MEAN CORPUSCULAR HGB CONC 33.1 g/dL (31-35); MEAN CORPUSCULAR VOLUME 86.8 fL (81-99); MONOCYTES # (AUTO) 0.9 (0.2-0.8); MONOCYTES % 9.2 % (4.4-11.3); NEUTROPHILS # (AUTO) 7.2 (2.1-6.9); PLATELET COUNT 161 x10e3/uL (140-360); RED BLOOD COUNT 4.53 x10e6/uL (4.3-5.7); RED CELL DISTRIBUTION WIDTH 14.6 % (11.7-14.4)
[2021-06-02 06:52] LABS: ALBUMIN 3.1 g/dL (3.5-5.0); ANION GAP 13.4 mmol/L (8-16); CALCIUM 8.6 mg/dL (8.4-10.2); CREATININE, SERUM 0.8 mg/dL (0.72-1.25); MAGNESIUM 1.8 MG/DL (1.3-2.1); PHOSPHORUS 1.7 MG/DL (2.3-4.7); POTASSIUM 3.4 mmol/L (3.5-5.1)
[2021-06-02] MEDS: MORPHINE SULFATE INJ 4 MG/ML INJ 1ML IV PRN ×2 (08:25→17:04)
[2021-06-02] MEDS: INSULIN LISPRO 100 UNIT/1 ML 3ML VIAL SQ SCH ×4 (08:30→21:13)
[2021-06-02] MEDS: CARVEDILOL 3.125 MG TAB PO SCH ×2 (08:34→21:07)
[2021-06-02] MEDS: SERTRALINE HCL 100 MG TAB PO SCH (08:34)
[2021-06-02] MEDS: CIPROFLOXACIN 400 MG/D5W 200ML 200 ML IV SCH ×2 (09:04→19:04)
[2021-06-02] MEDS: ENOXAPARIN SOD INJ 40 MG/0.4 ML SYR SC SCH (17:03)
[2021-06-02] MEDS ORDERED: TIZANIDINE HCL 4 MG TAB PO PRN (19:15)
[2021-06-02] MEDS: MONTELUKAST SODIUM 10 MG TAB PO SCH (21:07)
[2021-06-03] VITALS: BP 121/69
[2021-06-03] MEDS ORDERED: BISACODYL 5 MG TAB EC PO ONE ×2 (00:15→04:45)
[2021-06-03 04:00] VITALS: BP 120/67
[2021-06-03 05:09] LABS: BASOPHILS # (AUTO) 0.1 (0.0-0.1); BASOPHILS % 0.6 % (0.0-1.0); EOSINOPHILS # (AUTO) 0.2 (0.0-0.4); EOSINOPHILS % 2.3 % (0.0-6.0); HEMATOCRIT 39.2 % (38.2-49.6); HEMOGLOBIN 12.8 g/dL (14.0-18.0); LYMPHOCYTES % 22.8 % (18.0-39.1); MEAN CORPUSCULAR HEMOGLOBIN 28.4 pg (28-32); MEAN CORPUSCULAR HGB CONC 32.7 g/dL (31-35); MEAN CORPUSCULAR VOLUME 86.9 fL (81-99); NEUTROPHILS # (AUTO) 5.4 (2.1-6.9); PLATELET COUNT 153 x10e3/uL (140-360); RED BLOOD COUNT 4.51 x10e6/uL (4.3-5.7); RED CELL DISTRIBUTION WIDTH 14.5 % (11.7-14.4)
[2021-06-03] MEDS: METRONIDAZOLE 500MG/NS 100ML 100 ML IV SCH (05:09)
[2021-06-03 05:38] LABS: ANION GAP 13.5 mmol/L (8-16); CALCIUM 8.3 mg/dL (8.4-10.2); CREATININE, SERUM 0.71 mg/dL (0.72-1.25); POTASSIUM 3.5 mmol/L (3.5-5.1)
[2021-06-03] MEDS: MORPHINE SULFATE INJ 4 MG/ML INJ 1ML IV PRN (05:44)
[2021-06-03 09:00] VITALS: BP 127/78
[2021-06-03 10:23] VITALS: BP 127/78
[2021-06-03] MEDS: SERTRALINE HCL 100 MG TAB PO SCH (11:14)
[2021-06-03] MEDS: CARVEDILOL 3.125 MG TAB PO SCH (11:22)
[2021-06-03 11:50] VITALS: BP 147/70
== END 2021-06-03 15:29 | disposition home or self-care (01) | DRG 392 ==
LOC: ER 10:12 → ERHOLD 15:43 → MED/SURG2 20:12 → OBSVTOIN 06-01 16:43
PROVIDERS: ADMIT Internal Medicine; ATTEND Internal Medicine
DX: A08.4 Viral intestinal infection, unspecified (principal); I25.10 Atherosclerotic heart disease of native coronary artery without angina pectoris; E78.5 Hyperlipidemia, unspecified; J44.9 Chronic obstructive pulmonary disease, unspecified; Z95.810 Presence of automatic (implantable) cardiac defibrillator; I25.2 Old myocardial infarction; Z86.73 Personal history of transient ischemic attack (TIA), and cerebral infarction without residual deficits; K21.9 Gastro-esophageal reflux disease without esophagitis; F32.9 Major depressive disorder, single episode, unspecified; E11.40 Type 2 diabetes mellitus with diabetic neuropathy, unspecified; B19.20 Unspecified viral hepatitis C without hepatic coma; Z79.4 Long term (current) use of insulin; Z95.1 Presence of aortocoronary bypass graft; Z87.891 Personal history of nicotine dependence
CPT/HCPCS: 36415; 74177; 80048; 80053; 81001; 82948; 83605; 83735; 84100; 85025; 87040; 96361; 99251; 99284; G0378; J1650; J2270; J2405; J7030; Q9967; U0002

== ENCOUNTER 2021-09-01 11:47 | Emergency (ER) | payer MEDICARE, OTHER ==
[~2021-09-01] VITALS: Ht 182.9 cm; Wt 86.2 kg
[~2021-09-01 11:47] MED LIST changes: +ATORVASTATIN CA20 MG PO; +MIRTAZAPINE7.5 MG PO; +MONTELUKAST SOD10 MG PO; +OMEPRAZOLE40 MG PO; +ONDANSETRON ODT4 MG PO; +TIZANIDINE HCL4 MG PO; +TRADJENTA5 MG PO
[2021-09-01] MEDS ORDERED: Morphine 4mg Syringe 4 MG/ML INJ IV STA (12:16)
[2021-09-01] MEDS ORDERED: SODIUM CHLORIDE 0.9% 1000ML 1,000 ML IV STA (12:16)
[2021-09-01] MEDS ORDERED: ONDANSETRON HCL INJ 2MG/ML 2ML 2 MG/ML VIAL IV STA (12:16)
[2021-09-01] MEDS ORDERED: SODIUM CHLORIDE 0.9% 500ML 500 ML IV ONE ×2 (12:45→15:45)
[2021-09-01 13:02] LABS: BASOPHILS % 0.1 % (0.0-1.0); HEMOGLOBIN 15.9 g/dL (14.0-18.0); LYMPHOCYTES # (AUTO) 1.2 (1.0-3.2); LYMPHOCYTES % 8.3 % (18.0-39.1); MEAN CORPUSCULAR HEMOGLOBIN 28.6 pg (28-32); MEAN CORPUSCULAR HGB CONC 33.1 g/dL (31-35); MEAN CORPUSCULAR VOLUME 86.5 fL (81-99); MONOCYTES # (AUTO) 1.1 (0.2-0.8); MONOCYTES % 7.9 % (4.4-11.3); NEUTROPHILS # (AUTO) 11.9 (2.1-6.9); NEUTROPHILS % 83.2 % (38.7-80.0); PLATELET COUNT 163 x10e3/uL (140-360); RED BLOOD COUNT 5.55 x10e6/uL (4.3-5.7); RED CELL DISTRIBUTION WIDTH 14.3 % (11.7-14.4)
[2021-09-01 13:14] LABS: INR 1.01; PROTHROMBIN TIME 14.1 seconds (11.9-14.5)
[2021-09-01 13:22] LABS: ALBUMIN 4.8 g/dL (3.5-5.0); ALBUMIN/GLOBULIN RATIO 1.3 (0.8-2.0); ANION GAP 18.9 mmol/L (8-16); CALCIUM 10.4 mg/dL (8.4-10.2); CREATININE, SERUM 1.05 mg/dL (0.72-1.25); POTASSIUM 3.9 mmol/L (3.5-5.1)
[2021-09-01 13:28] LABS: CREATINE KINASE MB 2.6 ng/mL (0-5.0)
[2021-09-01] MEDS ORDERED: CEFEPIME 2 GM in SODIUM CHLORIDE 0.9% 100 ML IV ONE (14:30)
[2021-09-01] MEDS ORDERED: SODIUM CHLORIDE 0.9% 50ML 50 ML ONE (14:33)
[2021-09-01] MEDS ORDERED: IOPAMIDOL 370 MG/ML 200 ML INFUS..BTL INJ ONE (14:33)
[2021-09-01 15:46] LABS: CLARITY,URINE CLEAR (CLEAR); COLOR,URINE YELLOW (YELLOW); KETONES,URINE 2+ (NEGATIVE); LEUKOCYTE ESTERASE ,URINE NEGATIVE (NEGATIVE); NITRITE,URINE NEGATIVE (NEGATIVE); PROTEIN,URINE DIPSTICK >=300 (NEGATIVE); URINE UROBILINOGEN 0.2 mg/dL (0.2 - 1)
[2021-09-01 15:47] LABS: BACTERIA,URINE RARE /HPF; EPITHELIAL CELLS,URINE RARE /LPF; MUCUS,URINE MODERATE (RARE); RBC,URINE 0-5 /HPF (0-5); WBC,URINE (MAN) 0-5 /HPF (0-5)
[2021-09-01] MEDS ORDERED: SODIUM CHLORIDE 0.9% 500ML 500 ML ONE (15:50)
== END 2021-09-01 18:39 | disposition home or self-care (01) ==
LOC: ER 12:08
DX: R10.31 Right lower quadrant pain (principal); D72.829 Elevated white blood cell count, unspecified; E11.65 Type 2 diabetes mellitus with hyperglycemia; R11.2 Nausea with vomiting, unspecified; E86.0 Dehydration; I10 Essential (primary) hypertension; I50.9 Heart failure, unspecified; I25.10 Atherosclerotic heart disease of native coronary artery without angina pectoris; E78.5 Hyperlipidemia, unspecified; B19.20 Unspecified viral hepatitis C without hepatic coma; K21.9 Gastro-esophageal reflux disease without esophagitis; Z86.73 Personal history of transient ischemic attack (TIA), and cerebral infarction without residual deficits; Z20.822 Contact with and (suspected) exposure to COVID-19
CPT/HCPCS: 36415; 71045; 74177; 80053; 81001; 82550; 82553; 83605; 83690; 84484; 85025; 85610; 85730; 87040; 99284; C9113; J0692; J2270; J2405; J7040; J7050; Q9967; U0002

== ENCOUNTER → 2021-10-17 | Day surgery (SDC) | payer MEDICARE, OTHER ==
[~2021-10-17] MED LIST changes: +FENTANYL CITRATE/PF 100MCG/2 ML INJ ONE; +LIDOCAINE HCL 2% LOCAL INJ 5 ML SDV VIAL INJ ONE; +METOCLOPRAMIDE HCL 10 MG/2ML VIAL ONE; +PROPOFOL IV EMULSION 10 MG/ML 20 ML VIAL ONE
[2021-10-17 10:21] LABS: BASOPHILS % 0.5 % (0.0-1.0); EOSINOPHILS # (AUTO) 0.2 (0.0-0.4); EOSINOPHILS % 2.8 % (0.0-6.0); HEMATOCRIT 46.5 % (38.2-49.6); HEMOGLOBIN 14.8 g/dL (14.0-18.0); LYMPHOCYTES # (AUTO) 1.4 (1.0-3.2); LYMPHOCYTES % 16.9 % (18.0-39.1); MEAN CORPUSCULAR HEMOGLOBIN 29.1 pg (28-32); MEAN CORPUSCULAR HGB CONC 31.8 g/dL (31-35); MEAN CORPUSCULAR VOLUME 91.4 fL (81-99); MONOCYTES # (AUTO) 0.6 (0.2-0.8); MONOCYTES % 7.5 % (4.4-11.3); NEUTROPHILS # (AUTO) 5.9 (2.1-6.9); NEUTROPHILS % 72.1 % (38.7-80.0); PLATELET COUNT 147 x10e3/uL (140-360); RED BLOOD COUNT 5.09 x10e6/uL (4.3-5.7); RED CELL DISTRIBUTION WIDTH 14.4 % (11.7-14.4)
[2021-10-17 10:35] LABS: INR 0.98; PROTHROMBIN TIME 13.7 seconds (11.9-14.5)
[2021-10-17 10:37] LABS: PARTIAL THROMBOPLASTIN TIME 25.9 seconds (23.8-35.5)
[2021-10-17 10:39] LABS: ALBUMIN 4.1 g/dL (3.5-5.0); ALBUMIN/GLOBULIN RATIO 1.2 (0.8-2.0); ANION GAP 8.3 mmol/L (8-16); CALCIUM 9.7 mg/dL (8.4-10.2); CREATININE, SERUM 0.81 mg/dL (0.72-1.25); POTASSIUM 4.3 mmol/L (3.5-5.1)
[2021-10-17 13:52] VITALS: BP 151/83
== END | disposition home or self-care (01) ==
LOC: OR 09:25
PROVIDERS: ATTEND Internal Medicine Gastroenterology
DX: K21.9 Gastro-esophageal reflux disease without esophagitis (principal); K29.70 Gastritis, unspecified, without bleeding; K20.90 Esophagitis, unspecified without bleeding; K31.89 Other diseases of stomach and duodenum; K74.60 Unspecified cirrhosis of liver; G47.33 Obstructive sleep apnea (adult) (pediatric); E11.9 Type 2 diabetes mellitus without complications; I11.0 Hypertensive heart disease with heart failure; I50.22 Chronic systolic (congestive) heart failure; E78.00 Pure hypercholesterolemia, unspecified; B19.20 Unspecified viral hepatitis C without hepatic coma; J44.9 Chronic obstructive pulmonary disease, unspecified; I25.810 Atherosclerosis of coronary artery bypass graft(s) without angina pectoris; I25.2 Old myocardial infarction; I47.2 Ventricular tachycardia; R09.89 Other specified symptoms and signs involving the circulatory and respiratory systems; F32.A Depression, unspecified; F41.9 Anxiety disorder, unspecified; F17.210 Nicotine dependence, cigarettes, uncomplicated; Z88.0 Allergy status to penicillin; Z88.8 Allergy status to other drugs, medicaments and biological substances; Z20.822 Contact with and (suspected) exposure to COVID-19; Z79.82 Long term (current) use of aspirin; Z79.4 Long term (current) use of insulin; Z79.899 Other long term (current) drug therapy; Z95.1 Presence of aortocoronary bypass graft; Z95.810 Presence of automatic (implantable) cardiac defibrillator; Z86.73 Personal history of transient ischemic attack (TIA), and cerebral infarction without residual deficits; Z80.0 Family history of malignant neoplasm of digestive organs
CPT/HCPCS: 36415; 43239; 80053; 82948; 85025; 85610; 85730; 93005; C9113; J2001; J2704; J2765; J3010; U0002

== ENCOUNTER 2022-03-19 21:37 | Observation (INO) | payer MEDICARE, OTHER ==
[~2022-03-19] VITALS: Ht 180.3 cm; Wt 66.7 kg
[~2022-03-19 21:37] MED LIST changes: -FENTANYL CITRATE/PF 100MCG/2 ML INJ ONE; -LIDOCAINE HCL 2% LOCAL INJ 5 ML SDV VIAL INJ ONE; -METOCLOPRAMIDE HCL 10 MG/2ML VIAL ONE; -PROPOFOL IV EMULSION 10 MG/ML 20 ML VIAL ONE
[2022-03-19 22:46] LABS: BASOPHILS % 0.2 % (0.0-1.0); HEMATOCRIT 50.5 % (38.2-49.6); HEMOGLOBIN 16.6 g/dL (14.0-18.0); LYMPHOCYTES # (AUTO) 1.6 (1.0-3.2); LYMPHOCYTES % 13.3 % (18.0-39.1); MEAN CORPUSCULAR HEMOGLOBIN 29.2 pg (28-32); MEAN CORPUSCULAR HGB CONC 32.9 g/dL (31-35); MEAN CORPUSCULAR VOLUME 88.9 fL (81-99); MONOCYTES # (AUTO) 1.4 (0.2-0.8); NEUTROPHILS # (AUTO) 8.7 (2.1-6.9); NEUTROPHILS % 74.2 % (38.7-80.0); PLATELET COUNT 145 x10e3/uL (140-360); RED BLOOD COUNT 5.68 x10e6/uL (4.3-5.7); RED CELL DISTRIBUTION WIDTH 13.6 % (11.7-14.4)
[2022-03-19 22:51] LABS: INR 1.07; PROTHROMBIN TIME 14.9 seconds (11.9-14.5)
[2022-03-19 22:52] LABS: PARTIAL THROMBOPLASTIN TIME 25.1 seconds (23.8-35.5)
[2022-03-19 23:00] LABS: ALBUMIN 4.4 g/dL (3.5-5.0)
[2022-03-19] MEDS ORDERED: DICYCLOMINE HCL 20 MG/2 ML VIAL IM ONE (23:00)
[2022-03-19 23:07] LABS: CREATINE KINASE MB 3.8 ng/mL (0-5.0)
[2022-03-19 23:19] LABS: ANION GAP 20.1 mmol/L (8-16); CREATININE, SERUM 1.19 mg/dL (0.72-1.25); POTASSIUM 4.1 mmol/L (3.5-5.1)
[2022-03-20] VITALS (11 sets, daily range): BP systolic 128–174; BP diastolic 66–86
[2022-03-20] MEDS ORDERED: ONDANSETRON HCL INJ 2MG/ML 2ML 2 MG/ML VIAL IV STA (00:16)
[2022-03-20] MEDS ORDERED: SODIUM CHLORIDE 0.9% 500ML 500 ML IV STA (00:17)
[2022-03-20] MEDS ORDERED: PROMETHAZINE 25MG/ NS 50ML (IV) IV ONE (00:45)
[2022-03-20] MEDS: SODIUM CHLORIDE 0.9% 1000ML 1,000 ML IV SCH ×3 (00:45→15:31)
[2022-03-20] MEDS ORDERED: ONDANSETRON HCL INJ 2MG/ML 2ML 2 MG/ML VIAL IV PRN (00:45)
[2022-03-20] MEDS ORDERED: PROMETHAZINE 25MG/SOD CHL 0.9% 50 ML IV ONE (00:52)
[2022-03-20 10:16] LABS: CLARITY,URINE CLEAR (CLEAR); COLOR,URINE YELLOW (YELLOW); KETONES,URINE 1+ (NEGATIVE); LEUKOCYTE ESTERASE ,URINE NEGATIVE (NEGATIVE); NITRITE,URINE NEGATIVE (NEGATIVE); PROTEIN,URINE DIPSTICK 2+ (NEGATIVE)
[2022-03-20 10:17] LABS: AMPHETAMINES SCREEN,URINE NEGATIVE (NEGATIVE); BENZODIAZEPINES SCREEN,URINE NEGATIVE (NEGATIVE); PHENCYCLIDINE SCREEN,URINE NEGATIVE (NEGATIVE); URINE UROBILINOGEN 0.2 mg/dL (0.2 - 1)
[2022-03-20 10:31] LABS: BACTERIA,URINE MODERATE /HPF; EPITHELIAL CELLS,URINE FEW /LPF
[2022-03-20] MEDS: ACETAMINOPHEN/CODEINE 300MG - 30MG TAB PO PRN ×2 (10:48→20:31)
[2022-03-20 11:02] LABS: BASOPHILS % 0.2 % (0.0-1.0); HEMATOCRIT 47.9 % (38.2-49.6); HEMOGLOBIN 15.9 g/dL (14.0-18.0); LYMPHOCYTES # (AUTO) 1.2 (1.0-3.2); LYMPHOCYTES % 14.1 % (18.0-39.1); MEAN CORPUSCULAR HEMOGLOBIN 29.5 pg (28-32); MEAN CORPUSCULAR HGB CONC 33.2 g/dL (31-35); MEAN CORPUSCULAR VOLUME 88.9 fL (81-99); MONOCYTES # (AUTO) 0.7 (0.2-0.8); MONOCYTES % 8.2 % (4.4-11.3); NEUTROPHILS # (AUTO) 6.7 (2.1-6.9); NEUTROPHILS % 77.2 % (38.7-80.0); PLATELET COUNT 139 x10e3/uL (140-360); RED BLOOD COUNT 5.39 x10e6/uL (4.3-5.7); RED CELL DISTRIBUTION WIDTH 13.7 % (11.7-14.4)
[2022-03-20 11:21] LABS: ALBUMIN 3.8 g/dL (3.5-5.0); ANION GAP 14.2 mmol/L (8-16); CALCIUM 9.4 mg/dL (8.4-10.2); CREATININE, SERUM 0.94 mg/dL (0.72-1.25); POTASSIUM 4.2 mmol/L (3.5-5.1)
[2022-03-20] MEDS ORDERED: ATORVASTATIN 20 MG TAB PO SCH (21:00)
[2022-03-21] VITALS: BP 121/80
[2022-03-21] MEDS: SODIUM CHLORIDE 0.9% 1000ML 1,000 ML IV SCH ×3 (04:52→17:13)
[2022-03-21] MEDS: ACETAMINOPHEN/CODEINE 300MG - 30MG TAB PO PRN ×2 (04:54→12:59)
[2022-03-21 05:32] LABS: BASOPHILS % 0.6 % (0.0-1.0); EOSINOPHILS % 0.6 % (0.0-6.0); HEMATOCRIT 49.2 % (38.2-49.6); LYMPHOCYTES # (AUTO) 1.7 (1.0-3.2); MEAN CORPUSCULAR HEMOGLOBIN 29.5 pg (28-32); MEAN CORPUSCULAR HGB CONC 32.5 g/dL (31-35); MEAN CORPUSCULAR VOLUME 90.8 fL (81-99); MONOCYTES # (AUTO) 0.9 (0.2-0.8); MONOCYTES % 12.6 % (4.4-11.3); NEUTROPHILS # (AUTO) 4.5 (2.1-6.9); NEUTROPHILS % 62.9 % (38.7-80.0); PLATELET COUNT 125 x10e3/uL (140-360); RED BLOOD COUNT 5.42 x10e6/uL (4.3-5.7); RED CELL DISTRIBUTION WIDTH 13.6 % (11.7-14.4)
[2022-03-21 05:49] LABS: ANION GAP 15.9 mmol/L (8-16); CALCIUM 9.3 mg/dL (8.4-10.2); CREATININE, SERUM 0.87 mg/dL (0.72-1.25); POTASSIUM 3.9 mmol/L (3.5-5.1)
[2022-03-21 08:00] VITALS: BP 117/74
[2022-03-21 08:34] VITALS: BP 117/74
[2022-03-21] MEDS: CARVEDILOL 3.125 MG TAB PO SCH ×2 (08:44→17:17)
[2022-03-21 11:52] VITALS: BP 123/79
[2022-03-21 16:07] VITALS: BP 121/70
[2022-03-21] MEDS ORDERED: LIPITOR20 MG PO (17:32)
[2022-03-21] MEDS ORDERED: ONDANSETRON HCL 4 MG ORAL DISINTEGRATING TAB PO PRN (18:00)
== END 2022-03-21 19:03 | disposition home or self-care (01) ==
LOC: ER 21:48 → ERHOLD 03-20 00:34 → INTOOBSV 03-20 00:34 → MED/SURG 03-20 01:35
PROVIDERS: ADMIT Internal Medicine; ATTEND Internal Medicine
DX: R55 Syncope and collapse (principal); I25.2 Old myocardial infarction; E11.40 Type 2 diabetes mellitus with diabetic neuropathy, unspecified; E78.5 Hyperlipidemia, unspecified; I11.0 Hypertensive heart disease with heart failure; I50.22 Chronic systolic (congestive) heart failure; W18.2XXA Fall in (into) shower or empty bathtub, initial encounter; Y93.89 Activity, other specified; Y92.012 Bathroom of single-family (private) house as the place of occurrence of the external cause; I25.10 Atherosclerotic heart disease of native coronary artery without angina pectoris; K70.30 Alcoholic cirrhosis of liver without ascites; B19.20 Unspecified viral hepatitis C without hepatic coma; F41.9 Anxiety disorder, unspecified; F32.A Depression, unspecified; I77.9 Disorder of arteries and arterioles, unspecified; R42 Dizziness and giddiness; Z95.1 Presence of aortocoronary bypass graft; Z82.49 Family history of ischemic heart disease and other diseases of the circulatory system; Z95.810 Presence of automatic (implantable) cardiac defibrillator; Z86.73 Personal history of transient ischemic attack (TIA), and cerebral infarction without residual deficits; Z79.82 Long term (current) use of aspirin; Z79.4 Long term (current) use of insulin; Z20.822 Contact with and (suspected) exposure to COVID-19
CPT/HCPCS: 36415 ×2; 70450; 71045; 72125; 72128; 72131; 80048; 80053 ×2; 80307; 81001; 82550; 82553; 83735; 83880; 84484; 85025 ×3; 85610; 85730; 93005; 93306; 93880; 96361; 97161; 97530; 99284; G0378 ×2; J0500; J2550; J7030; U0002; 96360

== ENCOUNTER → 2023-02-22 | Outpatient (CLI) | payer MEDICARE, OTHER ==
[~2023-02-22] MED LIST changes: +LIPITOR20 MG PO
== END ==
LOC: US 07:16
PROVIDERS: ATTEND Nurse Practitioner
DX: K74.60 Unspecified cirrhosis of liver (principal)
CPT/HCPCS: 76700